=== PATIENT | female | born 1980 | race Caucasian/White ===

== ENCOUNTER 2024-08-24 08:28 | Outpatient (OUT) | payer BC, SELFPAY ==
--- NOTE | 2024-08-24 08:34 | CT_ITS ---
The [address] [address] Patient Name: ADALI JUARES MRN: [id number] date: 1980 Sex: F Assigned Patient Location: CT Current Patient Location: CT Accession/Order Number: [id number] Exam Date: 08/24/2024 09:38 Report Date: 08/24/2024 11:43 At the request of: KIARA MENDEZ Procedure: CT abdomen pelvis w con EXAM: CT abdomen pelvis w con HISTORY: Abdominal Pain, Diarrhea COMPARISON: None. TECHNIQUE: Following intravenous administration of 100 cc of Omnipaque 300, axial soft tissue windows of the abdomen and pelvis were performed with coronal and sagittal reformats. CT dose reduction technique was used including Automated Exposure Control. Findings: ABDOMEN: Small region of low attenuation within segment 4 of the liver adjacent to the falciform ligament likely relates to focal fatty infiltration. The gallbladder, spleen, pancreas, and adrenal glands are unremarkable. No renal stones or collecting system dilatation. Right renal low-attenuation lesion, too small to characterize. The bilateral ureters are nondilated. There are couple scattered colonic diverticula. Otherwise, the bowel is unremarkable without evidence of wall thickening or obstruction. The appendix is nondilated. The aorta is normal caliber. No enlarged abdominal lymph nodes or free abdominal fluid. Small fat-containing umbilicus hernia. Pelvis: Unremarkable bladder. The uterus is present and unremarkable within the limits of CT. Within the left adnexa there is a fluid density 2.2 cm lesion likely representing an ovarian cyst. No enlarged pelvic lymph nodes or free pelvic fluid. No aggressive sclerotic or lytic osseous lesions. CT/CT abdomen pelvis w con IMPRESSION: 1. No acute abdominal or pelvic abnormality. 2. Probable left ovarian cyst. 3. Other nonemergent findings, as described above. Electronically authenticated by: DARRIUS DE SANTIAGO Date: 08/24/2024 11:43
== END 2024-08-24 08:29 | disposition home or self-care (01) ==
LOC: CT 08:28
PROVIDERS: PCP Family Medicine; Visit Provider Family Medicine
DX: R10.9 Unspecified abdominal pain (principal); R19.7 Diarrhea, unspecified; N83.292 Other ovarian cyst, left side
CPT/HCPCS: 74177; Q9967

== ENCOUNTER 2024-09-12 16:08 | Outpatient (OUT) | payer BC, SELFPAY ==
--- NOTE | 2024-09-12 16:10 | US_ITS ---
The [address] [address] Patient Name: ADALI JUARES MRN: [id number] date: 1980 Sex: F Assigned Patient Location: US Current Patient Location: US Accession/Order Number: [id number] Exam Date: 09/12/2024 16:15 Report Date: 09/12/2024 19:48 At the request of: EBONY JAIN Procedure: US pelvis w/ transvaginal US pelvis w/ transvaginal HISTORY: LEFT OVARIAN CYST N83.202 COMPARISONS: 04/15/2025 TECHNIQUE: Transabdominal and transvaginal imaging the pelvis was performed. FINDINGS: UTERUS: Normal in size and echogenicity. The uterus measures 7.1 x 3.0 x 4.1 cm. MYOMETRIUM:Unremarkable. ENDOMETRIUM: The endometrium is within normal limits. The endometrium measures0.7 cm which is within normal limits. RIGHT OVARY: There is normal vascular flow to the right ovary. There are multiple follicles present in the right ovary. A dominant follicle measures 2.0 x 1.2 x 1.7 cm. No suspicious ovarian masses in the right ovary. The right ovary measures 4.9 x 2.2 x 3.5 cm and is mildly enlarged. LEFT OVARY: There is normal vascular flow to the left ovary. There is a dominant follicle in the left ovary measuring 1.4 x 0.9 x 1.47 m. The left ovary measures 3.6 x 1.4 x 2.3 cm and is normal in size. The cyst seen in the left ovary on the previous CT scan is no longer present and may have recently ruptured given the free fluid in the left adnexa adjacent to the left ovary. OTHER:There is a small amount of free fluid predominantly in the left adnexa. US/US pelvis w/ transvaginal IMPRESSION: Multiple follicles on both ovaries. There is a small amount of free fluid in the left adnexa adjacent to the left ovary. This may be secondary to Recently ruptured ovarian cyst from prior CT scan. No suspicious ovarian masses or evidence of ovarian torsion. Electronically authenticated by: KWESI REYES Date: 09/12/2024 19:48
--- OUTSIDE RECORDS SUMMARY | 2024-09-12 16:17 | XMS_ITS | CCD ---
Author Organization [facility] Care Team Providers Care Line Cook Name Role Phone DR HAYLIE MENDEZ Primary Care Unavailable ANDREA, DR HAYLIE Harris Admitting Unavailable ANDREA, DR HAYLIE Harris Attending Unavailable ANDREA, DR HAYLIE Harris Consulting Unavailable ANDREA, DR HAYLIE Harris Admitting Unavailable ANDREA, DR HAYLIE Harris Attending Unavailable ANDREA, DR HAYLIE Harris Consulting Unavailable ANDREA, DR HAYLIE Harris Primary Care Unavailable ANDREA, DR HAYLIE Harris Admitting Unavailable ANDREA, DR HAYLIE Harris Attending Unavailable Bridgett Clarke Unavailable Mabel Sapp Unavailable Haylie Mendez Unavailable Haylie Mendez MD Primary Care Provider [phone] Lisa Brooks MD Unavailable LISA BROOKS Attending Unavailable LISA BROOKS Attending Unavailable Allergies Allergy Classification Reported Allergen(s) Allergy Type Date of Onset Reaction(s) Facility (1 source) Penicillins Drug allergy (disorder) 4 [facility] (4 sources) Penicillin G Drug Allergy yeast infection [facility] Other (3 sources) Penicillins Drug Allergy 3 Rash [facility] (2 sources) Melatonin Drug Allergy 4 Other [facility] Medications Current Medications Medication Drug Class(es) Dates Sig (Normalized) Sig (Original) ADRENAPLEX (2 sources) Start: 05-30-2024 take 1 capsule by mouth once daily ADRENAPLEX Indications: Adrenal cortex hypofunction (CMS/HCC) Take 1 capsule by mouth Daily 05/30/2024 Active liothyronine sodium 0.005 mg oral tablet (13 sources) l-Triiodothyroni ne Start: 05-30-2024 liothyronine (Cytomel) 5 MCG tablet Indications: Euthyroid sick syndrome Take 1.5 tablet in AM and 1 tablet in PM on an empty stomach. SOLOMON; Sigma or Greenstone brands only 225 tablet 1 05/30/2024 Active Start: 05-30-2024 liothyronine ( Cytomel) 5 MCG tablet Indications: Euthyroid sick syndrome Take 1.5 tablet in AM and 1 tablet in PM on an empty stomach. SOLOMON; Sigma or Greenstone brands only 225 tablet 1 05/30/2024 Active Start: 12-01-2023 End: 05-30-2024 liothyronine (Cytomel) 5 MCG tablet Indications: ESS (euthyroid sick syndrome) Take 1 tablet (5 mcg) by mouth See administration instructions Take 1 tablet in AM and 1 tablet in PM on an empty stomach. SOLOMON; Sigma or Greenstone brands only 180 tablet 1 12/01/2023 05/30/2024 Discontinued (Dose adjustment) Start: 10-27-2023 take 1.5 tablets by mouth twice daily in the morning, then take 1 tablet by mouth twice daily in the evening Liothyronine 5 mcg tablet Active 0 PO Twice daily October 26, 2023 11:00pm 1.5 tablet in am and 1 tablet in pm orally twice daily; Liothyronine Sod ium Active methylPREDNISolone 4 mg oral tablet (6 sources) Corticosteroid Start: 10-23-2022 methylPREDNISo lone 4 MG as directed Orally for daily dose take half with breakfast, half with dinner for 6 days Jan, Active Start: 12-23-2021 methylPREDNISo lone 4 MG as directed Orally Once a day for 6 days November, Active SUMAtriptan 50 mg oral tablet (10 sources) Serotonin-1b and Serotonin-1d Receptor Agonist Start: 03-04-2024 Sumatriptan Succinat e 50 mg tablet Active 0 .ROUTE .COMPLEX March 04, 2024 8:11am TAKE 1 TABLET BY MOUTH NEEDED Start: 03-04-2024 Sumatriptan Domingo ccinate Active 0 .ROUTE .COMPLEX March 04, 2024 9:11am TAKE 1 TABLET BY MOUTH NEEDED Start: 10-27-2023 End: 03-04-2024 take 1 tablet by mouth once as needed Sumatriptan Succinate 50 mg tablet Discontinued 50 MG PO Once as needed October 26, 2023 11:00pm March 04, 2024 8:11am Start: 02-04-2023 SUMAtriptan (I mitrex) 50 MG tablet Take 50 mg by mouth if needed for migraine. 02/04/2023 Active Completed/Discontinued Medications Medication Drug Class(es) Dates Sig (Normalized) Sig (Original) Albuterol Sulfate 90 mcg/actuation HFA aerosol inhaler (1 source) Start: 04-27-2024 End: 08-11-2024 Albuterol Sulfate 90 mcg/actuation HFA aerosol inhaler Discontinued 2 INH INHALATION EVERY 4-6 HOURS as needed for shortness of breath or wheezing 6.7 14 April 26, 2024 11:00pm August 11, 2024 9:26am azithromycin 250 mg oral tablet (5 sources) Macrolide Antimicrobial Start: 04-27-2024 End: 08-11-2024 Azithromycin 250 mg tablet Discontinued 0 PO .COMPLEX April 26, 2024 11:00pm August 11, 2024 9:27am For 250 mg dose pack: take 500 mg today (day 1), then 250 mg for 4 days (days 2-5) PO Start: 11-18-2023 End: 04-27-2024 take 2 tablets by mouth once daily, then take 1 tablet by mouth once daily Azithromycin (Zithromax Z-Darek) 250 mg tablet Discontinued 250 MG PO Daily 6 November 17, 2023 11:00pm April 27, 2024 9:14am take 2 tabs today and 1 daily for the next 4 days Start: 02-04-2023 Azithromycin 2 50 MG as directed Orally 2 tabs po today, then 1 tab daily x 4 more days for 5 Jan, Active nystatin [id number] unt/ml oral suspension (1 source) Polyene Antifungal Start: 04-27-2024 End: 08-11-2024 take 1 mL by mouth four times daily Nystatin 100,000 unit/mL suspension Discontinued 5 ML PO Four times daily 140 April 26, 2024 11:00pm August 11, 2024 9:27am swish and swallow Problems Active Problems Problem Classification Problem Date Documented Da te Episodic/Chronic Acute and chronic tonsillitis (1 source) Acute bacterial tonsillitis; Translations: [Acute tonsillitis due to other specified organisms] 04-27-2024 Episodic Acute bronchitis (1 source) Acute bronchitis, unspecified; Translations: [ACUTE BRONCHITIS UNSPECIFIED] Onset: 02-08-2021 Episodic Allergic reactions (4 sources) Eczema; Translations: [Dermatitis, unspecified] 10-27-2023 Episodic Immunizations and screening for infectious disease (1 source) Contact with or exposure to other viral diseases; Translations: [Exposure to 2019 novel coronavirus] 04-27-2024 Episodic Malaise and fatigue (5 sources) Fatigue; Translations: [Chronic fatigue, unspecified] Onset: 04-17-2023 04-17-2023 Chronic Mycoses (1 source) Candidiasis of mouth; Translations: [Candidal stomatitis] 04-27-2024 Episodic Other endocrine disorders (5 sources) Adrenal cortical hypofunction; Translations: [Unspecified adrenocortical insufficiency] Onset: 04-17-2023 04-17-2023 Chronic Other gastrointestinal disorders (4 sources) Diarrhea; Translations: [Diarrhea, unspecified] 10-27-2023 Episodic Other gastrointestinal disorders (2 sources) Diarrhea, unspecified; Translations: [Diarrhea] 10-27-2023 Episodic Other lower respiratory disease (6 sources) Habitual snoring; Translations: [Snoring] 10-27-2023 Episodic Other lower respiratory disease (2 sources) Apnea; Translations: [Apnea, not elsewhere classified] Episodic Other nutritional; endocrine; and metabolic disorders (5 sources) Body mass index 25-29 - overweight; Translations: [Overweight] Onset: 04-17-2023 04-17-2023 Episodic Other screening for suspected conditions (not mental disorders or infectious disease) (4 sources) Encounter for screening for malignant neoplasm of cervix; Translations: [ENC SCREENING MALIG NEOPLASM CERV] Onset: 02-28-2021 Episodic Other upper respiratory infections (4 sources) Chronic sinusitis; Translations: [Chronic sinusitis, unspecified] 10-27-2023 Chronic Other upper respiratory infections (9 sources) Acute sinusitis, unspecified; Translations: [Acute pharyngitis, unspecified] Episodic Residual codes; unclassified (4 sources) Obstructive sleep apnea (adult) (pediatric); Translations: [OBSTRUCTIVE SLEEP APNEA] Onset: 03-11-2021 Chronic Residual codes; unclassified (4 sources) Sleep dysfunction with arousal disturbance; Translations: [Other sleep disorders] Onset: 05-30-2024 05-30-2024 Chronic Thyroid disorders (4 sources) Hypothyroidism; Translations: [Hypothyroidism, unspecified] 10-27-2023 Chronic Thyroid disorders (5 sources) Sick-euthyroid syndrome; Translations: [Sick-euthyroid syndrome] Onset: 04-17-2023 04-17-2023 Episodic Unclassified (3 sources) CONTACT W/AND (SUSP) EXPOS COVID-19; Translations: [CONTACT W/AND (SUSP) EXPOS COVID-19] Onset: 02-08-2021 Viral infection (2 sources) Other viral agents as the cause of diseases classified elsewhere Episodic Past or Other Problems Problem Classification Problem Date Documented Date Episodic/Chronic Otitis media and related conditions (1 source) Unspecified nonsuppurative otitis media, right ear Onset: 12-23-2021 Resolved: 12-23-2021 Episodic Spondylosis; intervertebral disc disorders; other back problems (8 sources) Cervico-occipital neuralgia; Translations: [Occipital neuralgia] Onset: 11-21-2015 10-27-2023 Episodic Unclassified (1 source) CONTACT W/AND (SUSP) EXPOS COVID-19; Translations: [CONTACT W/AND (SUSP) EXPOS COVID-19] Onset: 01-31-2021 Unclassified (1 source) Contact with and (suspected) exposure to covid-19 Z20.822 Results Test Name Value Interpretation Reference Range Facility No Panel InformationOrdered By: Kathy Gloria on 04-27-2024 Quick Strep (POC) [facility] No Panel InformationOrdered By: Radha Gatica on 11-18-2023 Quick Strep (POC) [facility] COVID + FLU Quick Testingon 02-02-2023 SARS-CoV-2 (COVID-19) RNA AURELIA+probe Ql (Unsp spec) Negative [facility] Other COVID + FLU Quick Testing Negative [facility] Other Quick Strepon 02-02-2023 S. pyogenes Org specific cx Ql (Throat) Negative [facility] Other Quick Strep [facility] Other Quick Strepon 10-23-2022 S. pyogenes Org specific cx Ql (Throat) Negative [facility] Other [facility] Other PAP ACOG PANEL 2: 30 to 65on 03-05-2021 . . Normal [place] Comment on above: Result Comment: Perf ormed at: WB Performed By: #### [id number] #### [facility] [address] [place] [address] Krishna Medrano Age Gdln ACOG Testing 30-65 Normal [place] Comment on above: Performed By: #### [id number] #### [facility] [address] [place] [address] Krishnakrunal Marquezen DIAGNOSIS: Comment Normal [place] Comment on above: Result Comment: NEGA TIVE FOR INTRAEPITHELIAL LESION OR MALIGNANCY. THIS SPECIMEN WAS RESCREENED PART OF OUR HIGH SPEED WARPER TENDER PROGRAM. Performed at: WB Performed By: #### [id number] #### [facility] [address] [place] [address] Krishna Medrano HPV Aptima Negative Normal Negative [place] Comment on above: Result Comment: This nucleic acid amplification test detects fourteen high-risk HPV types (16,18,31,33,35,39,45,51,52,56,58,59,66,68) without differentiation. Performed at: =G Performed By: #### [id number] #### [facility] [address] [place] [address] Krishna Marquezen Methodology: Comment Normal [place] Comment on above: Result Comment: This liquid based ThinPrep(R) pap test was screened with the use of an image guided system. Performed at: WB Performed By: #### [id number] #### [facility] [address] [place] [address] Krishna Marquezen Note: Comment Normal [place] Comment on above: Result Comment: The Pap smear is a screening test designed to aid in the detection of premalignant and malignant conditions of the uterine cervix. It is not a diagnostic procedure and should not be used as the sole means of detecting cervical cancer. Both false-positive and false-negative reports do occur. . Performed at: WB Performed By: #### [id number] #### [facility] [address] [address] Krishna Medrano Performed by: Comment Normal [facility] Comment on above: Result Comment: Juan Luis Leiva, Classification Control Clerk (ASCP) Performed at: WB Performed By: #### [id number] #### [facility] [address] [id number] Krishna Medrano QC reviewed by: Comment Normal [facility] Comment on above: Result Comment: Veronique Eddy, Classification Control Clerk (ASCP) Performed at: WB Performed By: #### [id number] #### [facility] [address] Specimen adequacy: Comment Normal [facility] Comment on above: Result Comment: Sati sfactory for evaluation. Endocervical and/or squamous metaplastic cells (endocervical component) are present. Performed at: WB Performed By: #### [id number] #### [facility] [address] [place] [address] Covid-19 PCR (CVDTB)on SARS-CoV-2 (COVID-19) RNA AURELIA+probe Ql (Unsp spec) Not detected Normal NOT DETECTED [place] Comment on above: Result Comment: This test is not yet approved or cleared by the [place] FDA. When there are no FDA-approved or cleared tests available, and other criteria are met, FDA can make tests available under an emergency access mechanism called an Emergency Use Authorization (EUA). The EUA for this test is supported by the Instructional Resource Teacher of Health and Human Service's (HHS's) declaration that circumstances exist to justify the emergency use of in vitro diagnostics for the detection and/or diagnosis of the virus that causes COVID-19. This EUA will remain in effect (meaning this test can be used) for the duration of the COVID-19 declaration justifying emergency of IVDs, unless it is terminated or revoked by FDA (after which the test may no longer be used). When diagnostic testing is negative, the possibility of a false negative should be considered in the context of a patient's recent exposures and the presence of clinical signs and symptoms consistent with SARS-CoV-2. Performed By: #### C CANDIDAAGS, CVDTB #### [facility] [address] [place], [place] [address] Krishna Medrano SYMPTOMATIC COVID-19 ANTIGEN on 01-31-2021 EUA Statement SEE BELOW Normal [facility] Comment on above: Result Comment: This test has not been FDA cleared or approved, but has been authorized by the FDA under an Emergency Use Authorization (EUA) for use by authorized laboratories certified under CLIA that meet the requirements to perform moderate or high complexity testing. This test has been authorized only for the detection of proteins from SARS-CoV-2, not for any other viruses or pathogens. The emergency use of this test is authorized for the duration of the declaration that circumstances exist justifying the authorization of emergency use of in vitro diagnostic tests for detection and/or diagnosis of Covid-19 under section 564(b)(1) of the Act, 21 U.S.C. 360bbb-3(b)(1), unless the declaration is terminated or authorization is revoked sooner. Performed By: #### C BRIELLES, CVDTB #### [facility] [address] [place], [place] [address] Krishna Medrano SARS-CoV-2 (COVID-19) RNA AURELIA+probe Ql (Unsp spec) Negative Normal NEGATIVE [facility] Comment on above: Performed By: #### C BRIELLES, CVDTBH #### [facility] [address] [place], [place] [address] Krishna Medrano Vital Signs Date Time Vital Sign Value Performing Clinician Facility 08-11-2024 09:0500 Body height 160.02 cm [facility] 08-11-2024 09:210500 Body mass index (BMI) [Ratio] 27.8 kg/m2 [facility] 08-11-2024 09:0500 Body weight 71.38 kg [facility] 08-11-2024 09:210500 Diastolic blood pressure 97 mm[Hg] [facility] 08-11-2024 09:210500 Heart rate 79 /min [facility] 08-11-2024 09:21-0500 Systolic blood pressure 147 mm[Hg] [facility] 05-30-2024 07:59-0500 Body height 160 cm Lisa Brooks MD Work Phone: [facility] 05-30-2024 07:59-0500 Body mass index (BMI) [Ratio] 27.63 kg/m2 Lisa Brooks MD Work Phone: [facility] 05-30-2024 07:59-0500 Body weight 70.76 kg Lisa Brooks MD Work Phone: [facility] 04-27-2024 10:17-0400 Body height 160.02 cm [facility] 04-27-2024 10:17-0400 Body mass index (BMI) [Ratio] 23.7 kg/m2 [facility] 04-27-2024 10:17-0400 Body temperature 98.4 [degF] [facility] 04-27-2024 10:17-0400 Body weight 60.78 kg [facility] 04-27-2024 10:17-0400 Diastolic blood pressure 88 mm[Hg] [facility] 04-27-2024 10:17-0400 Heart rate 110 /min [facility] 04-27-2024 10:17-0400 Respiratory rate 18 /min [facility] 04-27-2024 10:17-0400 SaO2% (BldA) [Mass fraction] 95 % [facility] 04-27-2024 10:17-0400 Systolic blood pressure 133 mm[Hg] [facility] 11-18-2023 10:05-0400 Body height 160.02 cm [facility] 11-18-2023 10:05-0400 Body mass index (BMI) [Ratio] 27.6 kg/m2 [facility] 11-18-2023 10:05-0400 Body temperature 97.4 [degF] [facility] 11-18-2023 10:05-0400 Body weight 70.81 kg [facility] 11-18-2023 10:05-0400 Diastolic blood pressure 70 mm[Hg] [facility] 11-18-2023 10:05-0400 Heart rate 88 /min [facility] 11-18-2023 10:05-0400 Respiratory rate 16 /min [facility] 11-18-2023 10:05-0400 SaO2% (BldA) [Mass fraction] 98 % [facility] 11-18-2023 10:05-0400 Systolic blood pressure 120 mm[Hg] [facility] 10-27-2023 09:00-0400 Body height 157.48 cm [facility] 10-27-2023 09:00-0400 Body mass index (BMI) [Ratio] 28.7 kg/m2 [facility] 10-27-2023 09:00-0400 Body weight 71.21 kg [facility] 10-27-2023 09:00-0400 Diastolic blood pressure 78 mm[Hg] [facility] 10-27-2023 09:00-0400 Heart rate 111 /min [facility] 10-27-2023 09:00-0400 SaO2% (BldA) [Mass fraction] 98 % [facility] 10-27-2023 09:00-0400 Systolic blood pressure 124 mm[Hg] [facility] 02-04-2023 10:30-0400 Body height 157.48 cm Haylie Mendez Other [employer] [facility] Other 02-04-2023 10:30-0400 Body mass index (BMI) [Ratio] 27.72 kg/m2 Haylie Mendez Other [employer] [facility] Other 02-04-2023 10:30-0400 Body weight 68.77 kg Haylie Mendez Other [employer] [facility] Other 02-04-2023 10:30-0400 Diastolic blood pressure 102 mm[Hg] Haylie Mendez Other [employer] [facility] Other 02-04-2023 10:30-0400 Systolic blood pressure 136 mm[Hg] Haylie Mendez Other [facility] Other 02-02-2023 09:40-0400 Body height 157.48 cm Mabel Sapp Other [facility] Other 02-02-2023 09:40-0400 Body mass index (BMI) [Ratio] 28.27 kg/m2 Mabel Sapp Other [facility] Other 02-02-2023 09:40-0400 Body temperature 98.6 [degF] Mabel Sapp Other [facility] Other 02-02-2023 09:40-0400 Body weight 70.13 kg Mabel Sapp Other [facility] Other 02-02-2023 09:40-0400 Respiratory rate 18 /min Mabel Sapp Other [facility] Other 02-02-2023 09:40-0400 SaO2% (BldA) [Mass fraction] 98 % Mabel Sapp Other [facility] Other 10-23-2022 19:05-0400 Body height 157.48 cm Mabel Sapp Other [facility] Other 10-23-2022 19:05-0400 Body mass index (BMI) [Ratio] 27.43 kg/m2 Mabel Sapp Other [facility] Other 10-23-2022 19:05-0400 Body temperature 98.3 [degF] Mabel Sapp Other [facility] Other 10-23-2022 19:05-0400 Body weight 68.04 kg Mabel Sapp Other [facility] Other 10-23-2022 19:05-0400 Respiratory rate 18 /min Mabel Sapp Other [facility] Other 10-23-2022 19:05-0400 SaO2% (BldA) [Mass fraction] 99 % Mabel Sapp Other [facility] Other 12-23-2021 12:10-0400 Body height 157.48 cm Bridgett Clarke Other [facility] Other 12-23-2021 12:10-0400 Body mass index (BMI) [Ratio] 27.07 kg/m2 Bridgett Herreraault Other [facility] Other 12-23-2021 12:10-0400 Body temperature 98.1 [degF] Bridgett Clarke Other [facility] Other 12-23-2021 12:10-0400 Body weight 67.13 kg Bridgett Clarke Other [facility] Other 12-23-2021 12:10-0400 Respiratory rate 16 /min Bridgett Herreraault Other [facility] Other 12-23-2021 12:10-0400 SaO2% (BldA) [Mass fraction] 98 % Bridgett Herreraault Other [facility] Other Encounters Encounter Date Encounter Type Care Provider Facility Start: 08-11-2024 End: 08-11-2024 ambulatory [facility] Work Phone: Start: 08-11-2024 End: 08-11-2024 Patient encounter procedure [facility] Work Phone: Start: 05-30-2024 End: 05-30-2024 Yakov Brooks MD Work Phone: [facility] Start: 05-30-2024 End: 05-30-2024 Yakov Brooks MD Work Phone: [facility] Start: 05-30-2024 End: 05-30-2024 Office outpatient visit 25 minutes Lisa Brooks MD Work Phone: [facility] Comment on above: Chronic fatigue (Zainab janes Dx); Euthyroid sick syndrome; Adrenal cortex hypofunction (CMS/HCC); Sleep dysfunction with arousal disturbance; Overweight (BMI 25.0-29.9) Start: 05-30-2024 End: 05-30-2024 ambulatory LISA BROOKS Not Available Start: 04-27-2024 End: 04-27-2024 ambulatory [facility] Work Phone: Start: 04-27-2024 End: 04-27-2024 Patient encounter procedure [facility] Work Phone: Start: 12-01-2023 End: 12-01-2023 ambulatory LISA BROOKS Not Available Start: 11-18-2023 End: 11-18-2023 ambulatory [facility] Work Phone: Start: 11-18-2023 End: 11-18-2023 Patient encounter procedure [facility] Work Phone: Start: 10-27-2023 End: 10-27-2023 ambulatory [facility] Work Phone: Start: 10-27-2023 End: 10-27-2023 Patient encounter procedure [facility] Work Phone: Start: 02-04-2023 End: 02-04-2023 ambulatory Haylie Mendez Other [facility] Other Start: 02-04-2023 Office outpatient vi sit 15 minutes Haylie Mendez [facility] Start: 02-02-2023 End: 02-02-2023 ambulatory Mabel Sapp Other [facility] Other Start: 02-02-2023 Office outpatient vi sit 25 minutes Mabel Sapp [facility] Start: 10-23-2022 End: 10-23-2022 ambulatory Mabel Sapp Other [facility] Other Start: 10-23-2022 Office outpatient vi sit 15 minutes Mabel Sapp [facility] Start: 12-23-2021 End: 12-23-2021 ambulatory Bridgett Clarke Other [facility] Other Start: 12-23-2021 Office outpatient vi sit 15 minutes Bridgettnestor Clarke [facility] Start: 03-11-2021 End: 03-12-[address] HAYLIE MENDEZ Facility:[facility] Start: 02-28-2021 End: 02-28-[address] HAYLIE MENDEZ Facility:[facility] Start: 01-31-2021 End: 02-01-[address] HAYLIE MENDEZ Facility:[facility] Procedures Date Procedure Procedure Detail Performing Clinician Start: 04-27-2024 Quick Strep (POC) Start: 11-18-2023 Quick Strep (POC) Plan of Treatment Date Care Activity Detail Author Start: 11-27-2024 End: 05-30-2025 T3, reverse T3, reverse Lab Routine Chronic fatigue Euthyroid sick syndrome Expected: 11/27/2024 (Approximate), Expires: 05/30/2025 [facility] Healthcare Comment on above: Expected: 11/27/2024 (Approximate), Expires: 05/30/2025 Start: 11-27-2024 End: 05-30-2025 Thyrotropin [Units/volume] in Serum or Plasma TSH Lab Routine Chronic fatigue Euthyroid sick syndrome Expected: 11/27/2024 (Approximate), Expires: 05/30/2025 [facility] Comment on above: Expected: 11/27/2024 (Approximate), Expires: 05/30/2025 Start: 11-27-2024 End: 05-30-2025 Thyroxine (T4) free [Mass/volume] in Serum or Plasma T4, free Lab Routine Chronic fatigue Euthyroid sick syndrome Expected: 11/27/2024 (Approximate), Expires: 05/30/2025 [facility] Healthcare Comment on above: Expected: 11/27/2024 (Approximate), Expires: 05/30/2025 Start: 11-27-2024 End: 05-30-2025 Triiodothyronine (T3) [Mass/volume] in Serum or Plasma T3 Lab Routine Chronic fatigue Euthyroid sick syndrome Expected: 11/27/2024 (Approximate), Expires: 05/30/2025 [facility] Work Phone: Comment on above: Expected: 11/27/2024 (Approximate), Expires: 05/30/2025 Start: 11-27-2024 End: 05-30-2025 Triiodothyronine (T3) Free [Mass/volume] in Serum or Plasma T3, free Lab Routine Chronic fatigue Euthyroid sick syndrome Expected: 11/27/2024 (Approximate), Expires: 05/30/2025 [facility] Healthcare Comment on above: Expected: 11/27/2024 (Approximate), Expires: 05/30/2025 Start: 11-24-2024 End: 11-24-2024 Patient encounter procedure 11/24/2024 8:00 AM EDT Office Visit [facility] [address] [place] [address] [place] [id number] Lisa Brooks MD [address] [place] [address] [facility] Start: 05-30-2024 End: 05-30-2024 Patient encounter procedure 05/30/2024 8:00 AM EST Office Visit [facility] [address] [place] [address] Lisa Brooks MD [address] [place] [address] (Fax) ESS (euthyroid sick syndrome); Chronic fatigue; Overweight (BMI 25.0-29.9) [facility] CI FM 100 Comment on above: ESS (euthyroid sick syndrome); Chronic fatigue; Overweight (BMI 25.0-29.9) Start: 03-27-2024 Influenza vaccination Influenza Vacc ine (#1) [facility] Start: 2020 Screening for malign ant neoplasm of breast Mammogram [facility] Start: 2010 Screening for malign ant neoplasm of cervix [facility] Start: 2001 Screening for malign ant neoplasm of cervix Pap Smear [facility] Immunizations Immunization Date Immunization Notes Care Provider Fa edna 02-08-2012 diphtheria, tetanus toxoids and acellular pertussis vaccine Bridgett Clarke Other [facility] Other 02-08-2012 diphtheria, tetanus toxoids and acellular pertussis vaccine, unspecified formulation [facility] Payers Date Payer Category Payer [facility] [id number] 2021 Unknown [id number] 1980 Unknown [id number] 1980 Unknown [id number] 1980 Unknown [id number] 1980 Unknown [id number] 1980 Unknown [id number] 1959 Unknown [id number] Social History Date Type Detail Facility Unknown if ever smoked [facility] Other Start: 05-27-2024 End: 05-30-2024 Sex Assigned At [facility] Start: 10-27-2023 End: 10-27-2023 Tobacco smoking status [facility] Never smoked tobacco (finding) [facility] Start: 1980 Sex Assigned At Female [facility] Start: 12-01-2023 Tobacco smoking status [facility] Ex-smoker [facility] History of tobacco use Current smoker [facility] History of tobacco use Cigarette Smoker [facility] Start: 12-01-2023 Tobacco use and exposure Smokeless tobacco non-user [facility] Start: 12-01-2023 End: 05-30-2024 Alcoholic beverage intake Current drinker of alcohol (finding) [facility] Start: 12-01-2023 End: 05-27-2024 Alcoholic beverage intake [facility] How often do you nee d to have someone help you when you read instructions, pamphlets, or other written material from your doctor or pharmacy [SILS] Never [facility] Do you belong to any clubs or organizations such as samaritan groups, unions, fraternal or athletic groups, or school groups? Yes [facility] Are you now , , , , never or living with a partner? [facility] How often to you hav e a drink containing alcohol? Monthly or less [facility] How many standard dr inks containing alcohol do you have on a typical day? 1 or 2 [facility] How often do you hav e 6 or more drinks on 1 occasion? Never [facility] How hard is it for y ou to pay for the very basics like food, housing, medical care, and heating Somewhat hard [facility] Do you feel stress - tense, restless, nervous, or anxious, or unable to sleep at night because your mind is troubled all the time - these days [OSQ] To some extent [facility] (I/We) worried wheth er (my/our) food would run out before (I/we) got money to buy more. Never true [facility] The food that (I/we) bought just didn't last, and (I/we) didn't have money to get more. Sometimes true [facility] In the past 12 month s, was there a time when you were not able to pay the mortgage or rent on time? No [facility] Start: 05-19-2023 Alcohol Comment Caffeine intake: 2-3 cups per day [facility] Start: 04-09-2023 Gender identity Identifies as female gender (finding) [facility] Start: 08-11-2024 Sex Female (finding) [facility] Clinical Notes 11-24-2013 to 05-30-2024 Lisa Brooks MD - 05/30/2024 8:00 AM EST Note Date & Type Note Facility 05-30-2024 History of Presen t illness Narrative Images from the original note were not included. Patient ID: Keira Yu is a 43 y.o. female who presents for: Pt here today to review his/hers thyroid labs and any medication changes needed. Fatigue: Present, worse in afternoon Weight Gain: Absent Inability to lose weight: Present, Unchanged Hair Changes: Better He/She is following the thyroid diet: Fair He/She are taking medications as directed: Good He/She are exercising at least 3 days out of the week for 30 minutes or more: Poor Review of Systems Constitutional: Positive for fatigue. Negative for appetite change. HENT: Negative for trouble swallowing and voice change. Cardiovascular: Negative for palpitations. Musculoskeletal: Positive for arthralgias. Negative for myalgias. Psychiatric/Behavioral: Positive for sleep disturbance. The patient is nervous/anxious. Endocrine: Negative for cold intolerance and heat intolerance. Labs 05/19/2024 Calculated THY Ratio: 8.7 Objective The patient is pleasant and in no acute distress The patient does not appear to have a gross neurologic deficit. The patient has good eye contact and clear speech Visit Vitals Ht 5' 3 Wt 156 lb BMI 27.63 kg/m OB Status Having periods Smoking Status Former BSA 1.77 m Allergies Allergen Reactions Penicillins Rash Other Reaction(s): Unknown Current Outpatient Medications on File Prior to Visit Medication Sig Dispense Refill liothyronine (Cytomel) 5 MCG tablet Take 1 tablet (5 mcg) by mouth See administration instructions Take 1 tablet in AM and 1 tablet in PM on an empty stomach. SOLOMON; Sigma or [employer] brands only 180 tablet 1 SUMAtriptan (Imitrex) 50 MG tablet Take 50 mg by mouth if needed for migraine. No current facility-administered medications on file prior to visit. 1. Chronic fatigue (Primary) Chronic problem, unstable, complex in nature with moderate decision making. 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 We discussed how this is either not improved or not inadequately addressed. We discussed how this is almost always a multifactorial problem. We discussed that the patient will almost certainly need to continue to make lifestyle changes including diet, sleep, exercise, and stress management as appropriate. We further discussed how we will continue to search for refinements in their current treatments or evaluation for further disease processes and then support or treat them as appropriate. We discussed how we can frequently improve the symptoms, but may not be able to completely cure or resolve the issue. The patient was given a chance to ask questions and all questions were answered. - T3; Future - T3, reverse; Future - T3, free; Future - T4, free; Future - TSH; Future - T3 - T3, reverse - T3, free - T4, free - TSH 2. Euthyroid sick syndrome Has a little bit of room when we look at her test and she is not quite optimal on a couple tests values. With her having her afternoon slump we have mutually agreed to a small increase in her a.m. thyroid. This is a complex chronic problem, unstable, not to goal; managment requires moderate decision making I reviewed diet and exercise with the patient. I discussed the patient's current psychosocial and physical condition and the stress impact upon them. I reviewed the multiple unique laboratories and explained the results to the patient. The patient has been re-educated concerning the above diagnoses and that the treatment for some of these may not be considered the standard of care, including TSH suppression when utilized. The patient has been re-educated and instructed concerning medication timing, diet, exercise, and stress reduction as appropriate. I reviewed the patient's current prescriptions and discussed the possibilities of medication renewals, adjustments, new medication start, or stop medication as appropriate The patient has been instructed to follow up and bring a diet and exercise log, and the importance of follow up and compliance. The patient was given a chance to ask questions today and all questions were answered. The patient is to contact us if any other questions arise or if any problems occur. In prescribing an adjustment to their current medication, consideration of the following encompasses moderate decision making; the current prescriptions and supplements, the current allergies and medication intolerances, the current medical conditions, and potential drug interactions. Risks, benefits, and reason for adjusting their current medication were discussed. The patient was given a chance to ask questions today and all questions were answered. The patient is to contact us if any other questions arise or if any problems occur with the adjustment in their medication. - liothyronine (Cytomel) 5 MCG tablet; Take 1.5 tablet in AM and 1 tablet in PM on an empty stomach. SOLOMON; [employer]opify or [employer] brands only Dispense: 225 tablet; Refill: 1 - T3; Future - T3, reverse; Future - T3, free; Future - T4, free; Future - TSH; Future - T3 - T3, reverse - T3, free - T4, free - TSH 3. Adrenal cortex hypofunction (CMS/HCC) She takes this after her lunch and does get some benefit. It does not last the entire work. Discussed the importance of good sleep and mindfulness and regular exercise in this role. - ADRENAPLEX; Take 1 capsule by mouth Daily 4. Sleep dysfunction with arousal disturbance This is a chronic problem that she brought up today. Melatonin gives her nightmares. Chronic problem, unstable I reviewed the patient's sleep disorder with them. I educated them concerning their specific sleep disorder. I advised the patient to review sleep hygiene recommendations online and implement these. I also recommend blue light blocking (the salmon/mabel colored ones) glasses in the evening for 1 1/2 - 2 hours prior to bedtime to filter out the blue light from the environment and create twilight . Natural supplements that can be used in any combination together include; 5 HTP (five hydroxy-tryptophan) 100-200mg, magnesium glycinate 100-200mg, Sometimes using adaptogens (such as ashwaganda 500 to 1000mg) in the early evening may also be helpful. These can be sometimes taken upon awaking in the middle of the night if you have sleep arousal disorder. Degi-xuh-zxisfkb medication includes doxylamine 1-2 tablets, and not most of the other medications which contain Benadryl and can be impairing. We have discussed that any supplements recommended have not undergone review or approval by the FDA and, therefore, have not been documented to be safe or effective to diagnose, treat, prevent, mitigate, or cure any condition or disease. I discussed with her she continues to have problem she is never going to feel rested. Also the adrenal gland makes most of it is hormone during the sleep cycle. Interrupted sleep cycles have demonstrated the inability of the adrenal to make the hormone. I discussed with the very specifically if she tries the above options and she still can not sleep through the night then she should follow-up with her PCP to try some prescription intervention. 5. Overweight (BMI 25.0-29.9) Lifestyle changes as above documented in this encounter [facility] 02-04-2023 Evaluation note Encounter Date Diagnosis Assessment Notes Jan, Acute non-recurren t maxillary sinusitis (ICD-10 - J01.00) Presentation consistent with acute sinusitis after viral illness. Educated patient on appropriateness of antibiotic at this time. Instructed to take full course of antibiotic despite feeling better after a few days. Encouraged to use saline nasal spray or nasal irrigation to help decrease viscosity and allow drainage. Encouraged humidifier or to breathe in steam from shower. Patient to continue Tylenol or Motrin as needed for discomfort. Patient to follow-up with PCP as needed if symptoms do not improve within a few days. Patient verbalizes understanding and agrees with plan of care. [facility] Other 07-10-2023 Evaluation note* Encounter Date Diagnosis Assessment Notes Treatment Notes Treatment Clinical Notes Jan, Contact with and (suspected) exposure to covid-19 (ICD-10 - Z20.822) Jan, Acute sinusitis, unspecified (ICD-10 - J01.90) Advised patient that rapid COVID/influenza A/B and rapid strep test was negative today in office. Discussed diagnosis with patient today. Will treat as viral at this time based on physical exam and duration of symptoms. Advised patient viral syndromes last 7-10 days. If symptoms do not improve in the next 3-4 days patient may call UC and I will send antibiotic of doxycycline. Encouraged supportive care as directed today. Push fluids/rest, nasal saline washes as directed, may use Tylenol or Motrin as needed for discomfort, OTC plain Mucinex. Patient to follow up with PCP or UC for any new or worsening symptoms. Work note provided today in office, no extension allowed. Immediate eval if SOB, wheezing, difficulty breathing, or other concerning symptoms. Patient verbalizes understanding and is agreeable to treatment plan. Jan, Other viral agents as the cause of diseases classified elsewhere (ICD-10 - B97.89) Jan, Sore throat (ICD-10 - J02.9) [facility] Other 03-30-2023 Evaluation note* Encounter Date Diagnosis Assessment Notes Treatment Notes Treatment Clinical Notes Sep, Acute sinusitis, unspecified (ICD-10 - J01.90) Advised patient that rapid Strep test was negative today in office. Patient declines/refuses COVID testing at this time. I am suspicous of COVID based on physical exam. Will send in Medrol dose pack to use as directed. Will treat as viral at this time based on physical exam and duration of symptoms. Advised patient viral syndromes last 7-10 days. If symptoms do not improve in the next 3-4 days patient may call UC and I will send antibiotic. Take steroid as prescribed. Use Mucinex OTC as directed. Encouraged supportive care. Push fluids/rest, nasal saline irrigation and spray as directed, may use Tylenol or Motrin as needed for discomfort. Patient to follow up with PCP or UC for any new or worsening symptoms. Warning signs and symptoms as discussed requiring immediate eval. Patient verbalizes understanding and is agreeable to treatment plan Sep, Other viral agents as the cause of diseases classified elsewhere (ICD-10 - B97.89) Sep, Sore throat (ICD-10 - J02.9) [facility] Other 05-30-2022 Evaluation note* Encounter Date Diagnosis Assessment Notes Treatment Notes Treatment Clinical Notes November, Right otitis media with effusion (ICD-10 - H65.91) Recommend OTC Zyrtec for symptoms. Follow up with PCP if symptoms persists. [facility] Other 08-16-2021 NoteHOME SLEEP STUDY Ordering Physician: Dr. Haylie Mendez Procedure Date: 03-11-21 CLINICAL HISTORY: This is a 40 year-old female who is 63 inches tall, weighs 153 pounds with a body mass index of 27.1, who was referred for loud snoring and witnessed episodes of apnea. RECORDING TIME: The total recording time was 6 hours and 53 minutes, total monitoring time was 6 hours and 25 minutes. COMPREHENSIVE VENTILATORY MONITORING: The patient had an apnea/hypopnea index o f9 per hour. The average oxygenation while awake was 95% with a minimum oxygen saturation down to 89%. PULSE DATA: The average pulse rate was 79 bpm, minimum pulse rate was 64 bpm and maximum pulse rate was 100 bpm. SNORING DATA: The patient had 587 snoring occurrences. IMPRESSION: 1. This patient does meet criteria for a mild obstructive sleep apnea and may benefit from CPAP titration. 2. This patient would benefit from treatment of any other coexisting medical condition including obesity, insomnia, anxiety or depression. 3. Please correlate clinically.[id number] History general Narrative - Reported* Type Description Date Medical History eczema Surgical History [facility] Surgical History Cyst on Face/Thigh 11/2013 [facility] Other 05-01-2014 History general Narrative - Reported* Type Description Date Medical History eczema Medical History Hypothyroidism Surgical History [facility] Surgical History Cyst on Face/Thigh 11/2013 Hospitalization History see above [facility] Other 05-01-2014 History general Narrative - Reported* Type Description Date Medical History eczema Medical History Hypothyroidism Medical History Habitual snoring Medical History Apnea Surgical History [facility] Surgical History Cyst on Face/Thigh 11/2013 Hospitalization History see above [facility] Other Chipb complaint+Reason for visit Narrative* Chief Complaint Sore throat Reason for Visit Contact with and (domingo spected) exposure to covid-19 Sore throat [facility] Work Phone: Evaluation note* Diagnosis Onset Date Resolution Status Diarrhea acute [facility] Work Phone: Evaluation note* Diagnosis Onset Date Resolution Status Diarrhea acute Bacterial pharyngitis noneac tive Sore throat noneactive [facility] Work Phone: Evaluation note* Diagnosis Onset Date Resolution Status Contact with and (suspected) exposure to covid-19 noneactive Sore throat noneactive [facility] Work Phone: Evaluation note* Diagnosis Chronic fatigue- Primary Other malaise and fatigue 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) Glucocorticoid deficiency Sleep dysfunction with arousal disturbance Overweight (BMI 25.0-29.9) [facility] Summary Purpose Family History No Family History Records FoundNo Family History Records Found Advance Directives Advance Directive Response Recorded Date/ Time Advance Directives No October 26 8:38am Advance Directive Response Recorded Date/ Time Advance Directives No October 26 7:38am Chief Complaint and Reason for Visit Chief Complaint Abdominal Pain Reason for Visit Diarrhea Chief Complaint Abdominal Pain Sore throat Reason for Visit Diarrhea Bacterial pharyngitis Sore throat Chief Complaint Admit Date Pain around belly button August 11 025 9:18am Additional Source Comments INFORMATION SOURCE (unrecogn ized section and content) DATE CREATED AUTHOR 04/09/2021 [facility] DATE CREATED AUTHOR AUTHOR'S ORGANIZ ATION 05/30/2024 [facility] EPIC REASON FOR VISIT (unrecogniz ed section and content) Reason Comments Hypothyroidism Care Teams (unrecognized sec tion and content) Team Status: Active Member Role Status Dates Haylie Mendez MD Primary Care Provider Active Team Status: Inactive Member Role Status Dates Haylie Mendez MD Primary Care Provider Active Start: October 27, 2023 End: October 27, 2023 Flora Arnold APRN LOAD CHECKER-C Attending Provider Act milo Start: October 27, 2023 End: October 27, 2023 Team Status: Inactive Member Role Status Dates Haylie Mendez MD Primary Care Provider Active Start: November 18, 2023 End: November 18, 2023 JAIDA Forbes Attending Provider Active S tart: November 18, 2023 End: November 18, 2023 Team Status: Inactive Member Role Status Dates Haylie Mendez MD Primary Care Provider Active Start: April 27, 2024 End: April 27, 2024 Kathy Gloria APRN Attending Provider Active S tart: April 27, 2024 End: April 27, 2024 Line Cook Relationship Specialty Start Date End Date Haylie Mendez MD [address] [place] [address] PCP - General 05/13/23 Lisa Brooks MD [address] [place] [address] PCP [facility] 09/25/23 Line Cook Relationship Specialty Start Date End Date Haylie Mendez MD [address] [place] [address] PCP - General 05/13/23 Lisa Brooks MD [address] [place] [address] PCP [facility] 09/25/23 Team Status: Inactive Member Role Status Dates Haylie Mendez MD Primary Care Provide r, Attending Provider Active Start: August 11, 2024 End: August 11, 2024 Goals (unrecognized section and content) Goals may be documented in a n alternate section FOR RECORDS PERTAINING TO PATIENTS WHO ARE OR HAVE BEEN ENROLLED IN A CHEMICAL DEPENDENCY/SUBSTANCEABUSE PROGRAM, SOME INFORMATION MAY BE OMITTED. This clinical summary was aggregated from multiple sources. Caution should be exercised in using it in the provision of clinical care. This summary normalizes information from multiple sources, and as a consequence, information in this document may materially change the coding, format and clinical context of patient data. In addition, data may be omitted in some cases. CLINICAL DECISIONS SHOULD BE BASED ON THE PRIMARY CLINICAL RECORDS. [facility]. provides no warranty or guarantee of the accuracy or completeness of information in this document.
== END 2024-09-12 16:09 | disposition home or self-care (01) ==
LOC: US 16:08
PROVIDERS: PCP Family Medicine; Visit Provider Obstetrics & Gynecology
DX: N83.202 Unspecified ovarian cyst, left side (principal)
CPT/HCPCS: 76830; 76856

== ENCOUNTER 2024-12-29 20:01 | Outpatient (REF) | payer BC, SELFPAY ==
--- OUTSIDE RECORDS SUMMARY | 2024-12-29 09:00 | XMS_ITS | Encounter Summary ---
Author Organization [facility] Address [address] [place] [address] Care Team Providers Care Author'S Agent Name Role Phone Haylie Mcnamara MD Primary Care Provider [phone] Yao Bowden MD Unavailable [phone] Reason for Visit * Reason Comments Well Women Visit Encounter Details Date Type Department Care Team (Late st Contact Info) Description 12/29/2024 9:00 AM EDT Office Visit [facility] [address] [facility] [place] [phone] Pooja Pena PA [address] [facility] [address] [place], [facility]11 Well woman exam with routine gynecological exam; Encounter for screening mammogram for malignant neoplasm of breast Social History Tobacco Use Types Packs/Day Years Used Date Smoking Tobacco: Former Cigarettes Smokeless Tobacco: Never Alcohol Use Standard Drinks/Week Comments Yes 4 (1 standard drink = 0.6 oz pure alcohol) Caffeine intake: 2-3 cups per day B1300 Health Literacy Answer Date Recor ded How often do you need to hav e someone help you when you read instructions, pamphlets, or other written material from your doctor or pharmacy? Never 05/27/2024 Social Connection and Isolation Panel [NHANES] A nswer Date Recorded In a typical week, how many times do you talk on the phone with family, friends, or neighbors? Three times a week 05/27/2024 How often do you get togethe r with friends or relatives? Once a week 05/27/2024 How often do you attend chur ch or jainism services? Never 05/27/2024 Do you belong to any clubs o r organizations such as baptist groups, unions, fraternal or athletic groups, or school groups? Yes 05/27/2024 How often do you attend meet ings of the clubs or organizations you belong to? Never 05/27/2024 Are you , , di vorced, , never , or living with a partner? 05/27/2024 AUDIT-C Answer Date Recorded Q1: How often do you have a drink containing alc ohol? Monthly or less 05/27/2024 Q2: How many drinks containi ng alcohol do you have on a typical day when you are drinking? 1 or 2 05/27/2024 Q3: How often do you have si x or more drinks on one occasion? Never 05/27/2024 Overall Financial Resource Strain (CARDIA) Answe r Date Recorded How hard is it for you to pa y for the very basics like food, housing, medical care, and heating? Somewhat hard 05/27/2024 [facility] - Occupational Stress Questionnaire Answer Date Recorded Do you feel stress - tense, restless, nervous, or anxious, or unable to sleep at night because your mind is troubled all the time - these days? To some extent 05/27/2024 Exercise Vital Sign Answer Date Recorde d On average, how many days pe r week do you engage in moderate to strenuous exercise (like a brisk walk)? 2 days 05/27/2024 On average, how many minutes do you engage in exercise at this level? 20 min 05/27/2024 Hunger Vital Sign Answer Date Recorded Within the past 12 months, y ou worried that your food would run out before you got the money to buy more. Never true Within the past 12 months, t he food you bought just didn't last and you didn't have money to get more. Sometimes true 07/2023 PRAPARE - Transportation Answer Date Re corded In the past 12 months, has l ack of transportation kept you from medical appointments or from getting medications? No 07/2023 In the past 12 months, has l ack of transportation kept you from meetings, work, or from getting things needed for daily living? No 05/27/2024 Housing Stability Vital Sign Answer Alex e Recorded In the last 12 months, was t here a time when you were not able to pay the mortgage or rent on time? No 05/27/2024 Number of Times Moved in the Last Year Not on fi le 05/27/2024 At any time in the past 12 m [facility], were you homeless or living in a alf (including now)? No 05/27/2024 Comments No Sex and Gender Information Value Date Recorded Sex Assigned at Female 04/09/2023 7:04 PM EDT Legal Sex Female 7:04 PM EDT Gender Identity Female 04/09/2023 7:04 PM EDT Sexual Orientation Not on file documented as of this encounter Last Filed Vital Signs Vital Sign Reading Time Taken Comments Blood Pressure 126/100 12/29/2024 9:20 AM EDT Pulse - - Temperature - - Respiratory Rate - - Oxygen Saturation - - Inhaled Oxygen Concentration - - Weight 70.9 kg (156 lb 4 oz) 12/29/2024 9:20 AM EDT Height - - Body Mass Index 27.68 11/21/2024 8:00 AM EDT documented in this encounter Progress Notes * NATHAN oMsqueda - 12/29/2024 9:00 AM EDT Reason for Appointment: Patient ID: Keira Yu is a 44 y.o. female who presents for Well Women Visit Patient presents today for Annual Exam. MEDICATIONS Current Outpatient Medications Medication Instructions ADRENAPLEX 1 capsule, Oral, Daily liothyronine (Cytomel) 5 MCG tablet Take 1.5 tablet in AM and 1 tablet in PM on an empty stomach. 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 Overweight (BMI 25.0-29.9) 04/17/2023 Sleep dysfunction with arousal disturbance 05/30/2024 Left lower quadrant abdominal pain 09/12/2024 Bloody stool 09/12/2024 Diarrhea 09/12/2024 Dark stools 09/12/2024 Diverticulitis 09/12/2024 Resolved Ambulatory Problems Diagnosis Date Noted No Resolved Ambulatory Problems Past Medical History: Diagnosis Date Allergies History of PCOS Obesity HISTORY PAST MEDICAL HISTORY SOCIAL HISTORY Past Medical History: Diagnosis Date Allergies History of PCOS [facility], [facility] Obesity Social History Tobacco Use Smoking status: Former Types: Cigarettes Smokeless tobacco: Never Vaping Use Vaping status: Never Used Substance Use Topics Alcohol use: Yes Alcohol/week: 4.0 standard drinks of alcohol Types: 4 Standard drinks or equivalent per week Comment: Caffeine intake: 2-3 cups per day Drug use: Never FAMILY HISTORY Family History Problem Relation Name Age of Onset Sleep apnea Father Rheum arthritis Father Diabetes Father Arthritis Father Migraines Sister Thyroid disease Sister SURGICAL HISTORY No past surgical history on file. REVIEW OF SYSTEMS Review of Systems: Review of Systems Constitutional: Negative. HENT: Negative. Eyes: Negative. Respiratory: Negative. Cardiovascular: Negative. Gastrointestinal: Negative. Genitourinary: Negative. Musculoskeletal: Negative. Skin: Negative. Neurological: Negative. All other systems reviewed and are negative. Hematological: Negative. Endocrine: Negative. Allergic/Immunologic: Negative. OBJECTIVE Objective: Physical Exam Constitutional: Appearance: Normal appearance. She is well-developed. Genitourinary: Vulva normal. Right Adnexa: not tender and no mass present. Left Adnexa: not tender and no mass present. No cervical discharge. Breasts: Breasts are soft. Right: Normal. Left: Normal. HENT: Head: Normocephalic. Nose: Nose normal. Mouth/Throat: Mouth: Mucous membranes are moist. Cardiovascular: Rate and Rhythm: Normal rate and regular rhythm. Pulmonary: Effort: Pulmonary effort is normal. Breath sounds: Normal breath sounds. Abdominal: General: Bowel sounds are normal. There is no distension. Palpations: Abdomen is soft. Tenderness: There is no abdominal tenderness. There is no guarding or rebound. Musculoskeletal: General: No swelling. Normal range of motion. Cervical back: Normal range of motion. Right lower leg: No edema. Left lower leg: No edema. Neurological: General: No focal deficit present. Mental Status: She is alert and oriented to person, place, and time. Skin: General: Skin is warm and dry. Psychiatric: Mood and Affect: Mood normal. Behavior: Behavior normal. Vitals and nursing note reviewed. Exam conducted with a medical clinic manager present. Vitals: Estimated body mass index is 27.68 kg/m?? as calculated from the following: Height as of 11/21/24: 5' 3 . Weight as of this encounter: 156 lb 4 oz. BP: (!) 126/100 No LMP recorded (lmp unknown). ASSESSMENT & PLAN ICD-10-CM 1. Well woman exam with routine gynecological exam Z01.419 THIN PREP TIS PAP AND HR HPV DNA 2. Encounter for screening mammogram for malignant neoplasm of breast Z12.31 Bilateral screening mammogram Bilateral screening mammogram Annual Exam: Patient presents today for an annual exam. Patient states she is doing well and has no complaints. Pap was obtained without difficulty. Patient is advised to follow up with PCP in regards to her elevated blood pressure here in office. Patient did have labs completed last month and encouraged to call and let PCP know this is still elevated since her last appointment with them. Orders Placed This Encounter Procedures Bilateral screening mammogram Follow Up: Patient is to return in one year for annual unless needed otherwise. Documented by Julissa Bueno LPN on behalf of: NATHAN Mosqueda documented in this encounter Plan of Treatment Upcoming Encounters Date Type Department Care Team (Late st Contact Info) Description 05/15/2025 8:00 AM EDT Office Visit [facility] [address] [address] Yao Bowden MD [address] [facility] 100 [place] [address] (Fax) 01/09/2026 8:30 AM EDT Office Visit [facility] [address] [facility] [place] [address] Antwan Hope, [address] [place], [place] [id number] Scheduled Orders Name Type Priority Associated Diagnoses Orde r Schedule Bilateral screening mammogram Imaging Routine Encounter for screening mammogram for malignant neoplasm of breast Expected: 12/29/2024 (Approximate), Expires: 02/28/2026 THIN PREP TIS PAP AND HR HPV DNA Pathology and Cytology Routine Well woman exam with routine gynecological exam Ordered: 12/29/2024 documented as of this encounter Visit Diagnoses Diagnosis Well woman exam with routine gynecological exam Routine gynecological examination Encounter for screening mammogram for malignant neoplasm of breast documented in this encounter Care Teams Author'S Agent Relationship Specialty Start Date End Date Haylie Mcnamara MD [address] [place] [phone] PCP - General 05/13/23 Yao Bowden MD [address] [place] [id number] PCP - Fay Leary 09/25/23 documented as of this encounter
--- OUTSIDE RECORDS SUMMARY | 2024-12-29 20:04 | XMS_ITS | Encounter Summary ---
Author Organization [facility] Address [address] [place] [address] Care Team Providers Care Laser Beam Color Scanner Operator Name Role Phone Haylie Mcnamara MD Primary Care Provider [phone] Yao Bowden MD Unavailable [phone] Encounter Details Date Type Department Care Team (Late Contact Info) Description 05/11/2023 Orders Only [facility] [address] [place] [address] Yao Bowden MD [address] [address] (Fax) Social History Tobacco Use Types Packs/Day Years Used Date Smoking Tobacco: Never Assessed Comments Unknown Sex and Gender Information Value Date Recorded Sex Assigned at Female 04/09/2023 7:04 PM EDT Legal Sex Female 7:04 PM EDT Gender Identity Female 04/09/2023 7:04 PM EDT Sexual Orientation Not on file documented as of this encounter Plan of Treatment Upcoming Encounters Date Type Department Care Team (Late Contact Info) Description 05/15/2025 8:00 AM EDT Office Visit [facility] [address] [facility] 100 [place] [address] Yao Bowden MD 112 [facility] 100 [place] [address] (Fax) 01/09/2026 8:30 AM EDT Office Visit [facility] [address] [facility] [place] [phone] Antwan Hope, DO [address] [place] [address] documented as of this encounter Procedures Procedure Name Priority Date/Time Associated Diagnosis Comments T3, REVERSE Routine 05/05/2023 1:04 PM EDT T3, FREE Routine 05/05/2023 1:04 PM EDT T3, TOTAL Routine 05/05/2023 1:04 PM EDT TSH Routine 05/05/2023 1:04 PM EDT T4, FREE Routine 05/05/2023 1:04 PM EDT documented in this encounter Results * T3, reverse (05/05/2023 1:04 PM EDT) Blood Venous blood specimen / Unknown Yao Bowden MD LAB BLOOD ORDERABLES Final R esult * TSH (05/05/2023 1:04 PM EDT) Blood Venous blood specimen / Unknown Yao Bowden MD LAB BLOOD ORDERABLES Final R esult * T4, free (05/05/2023 1:04 PM EDT) Blood Venous blood specimen / Unknown Yao Bowden MD LAB BLOOD ORDERABLES Final R esult * T3 (05/05/2023 1:04 PM EDT) Blood Venous blood specimen / Unknown Yao Bowden MD LAB BLOOD ORDERABLES Final R esult * T3, free (05/05/2023 1:04 PM EDT) Blood Venous blood specimen / Unknown Yao Bowden MD LAB BLOOD ORDERABLES Final R esult documented in this encounter Visit Diagnoses Not on filedocumented in this encounter Care Teams Laser Beam Color Scanner Operator Relationship Specialty Start Date End Date Haylie Mcnamara MD [address] [place] [phone] PCP - General 05/13/23 Yao Bowden MD [address] [place] [id number] PCP - [place] [facility] 09/25/23 documented as of this encounter
--- OUTSIDE RECORDS SUMMARY | 2024-12-29 20:04 | XMS_ITS | Clinical Summary ---
Author Organization [employer] [facility] tem Address [facility] [employer]-[id number] [address] [place] [address] Care Team Providers Care Teaching Associate Name Role Phone Haylie Mcnamara MD Primary Care Provider [phone] Allergies Active Allergy Reactions Criticality Noted Date Comments Melatonin Other (See Comments) 05/30/2024 nightmare Penicillins Rash Low 04/17/2023 Other Reaction(s): Unknown Medications liothyronine (CYTOMEL) 5 MCG tablet Take 1 tablet (5 mcg total) by mouth in the morning and 1 tablet (5 mcg total) before bedtime. Active SUMAtriptan (IMITREX) 50 mg tablet Take 1 tablet (50 mg total) by mouth once as needed for migraine. May repeat in 2 hours if unresolved. Do not exceed 200 mg in 24 hours. Active NON FORMULARY Take 1 each by mouth daily as needed. Med Name: Adrena Plex supplement Active NON FORMULARY Take 1 each by mouth in the morning. Med Name: Elderberry gummies. Active ibuprofen (MOTRIN) 400 mg tablet Take 1 tablet (400 mg total) by mouth every 6 (six) hours as needed for pain. Active Active Problems No known active problems Encounters Date Type Department Care Team Description 10/17/2024 Telephone [facility] [address] [place] [id number] Nirmala Monroe CMA 10/10/2024 8:00 AM EDT - 10/10/2024 8:30 AM EDT Surgery [facility] - Surgery [address] [place] [address] Prashant Pinto, DO COLONOSCOPY DIAGNOSTIC / SCREENING [54698 (CPT )] 10/10/2024 7:52 AM EDT Anesthesia Event [facility] - Surgery [address] [place] [address] Manjeet Garsia MD 10/10/2024 6:19 AM EDT - 10/10/2024 8:30 AM EDT Hospital Encounter [facility] - Surgery [address] [place] [address] Prashant Pinto, DO Left lower quadrant abdominal pain (Primary Dx) Discharge Disposition: Home 10/10/2024 Travel 10/04/2024 3:40 PM EDT Support Visit [facility] - Pre Admit [address] [place] [address] 09/29/2024 9:00 AM EST Office Visit [facility] [address] [place] [address] Giselle Coon, [employer] Left lower quadrant pain (Primary Dx); Altered bowel habits 09/29/2024 Travel from Last 3 Months Family History Medical History Relation Name Comments Diabetes Father Vamsi Gaines Border Line Relation Name Status Comments Father Vamsi Gaines Alive Mother Alive Social History Tobacco Use Types Packs/Day Years Used Date Smoking Tobacco: Former Cigarettes 0.1 2 2 000 - 2002 Smokeless Tobacco: Never Tobacco Cessation:Counseling Given: Not Answered Alcohol Use Standard Drinks/Week Comments Not Currently 0 (1 standard drink = 0.6 oz pur e alcohol) socially Comments No Sex and Gender Information Value Date Recorded Sex Assigned at Female 09/20/2024 1:03 PM EST Legal Sex Female 11:50 AM EST Gender Identity Female 09/20/2024 1:03 PM EST Sexual Orientation Straight 09/20/2024 1: 03 PM EST Last Filed Vital Signs Vital Sign Reading Time Taken Comments Blood Pressure 133/105 10/10/2024 8:25 AM EDT Pulse 78 10/10/2024 8:25 AM EDT Temperature 36.8 C (98.2 F) 10/10/2024 6:35 AM EDT Respiratory Rate 24 10/10/2024 8:25 AM EDT Oxygen Saturation 99% 10/10/2024 8:25 AM EDT Inhaled Oxygen Concentration - - Weight 70.3 kg (155 lb) 10/10/2024 6:35 AM EDT Height 160 cm (5' 3 ) 10/10/2024 6:35 AM EDT Body Mass Index 27.46 10/10/2024 6:35 AM EDT Plan of Treatment Health Maintenance Due Date Last Done Comments Depression Screening 1992 Adult BMI Follow Up Plan 1998 Pap Smear 2001 DTaP,Tdap and Td Vaccines (2 - Tdap) 02/07/202201/24 Influenza Vaccine 03/27/2025 Adult BMI Screening 10/10/2025 10/10/2024 Tobacco Screening 10/10/2025 10/10/2024 Medical Devices Not on file Procedures Procedure Name Priority Date/Time Associated Diagnosis Comments LAB RESULTS REPORT (SCANNED INTO EHR) 10/17/2024 3:42 PM EDT SURGICAL PATHOLOGY Routine 10/10/2024 8: 04 AM EDT MD COLONOSCOPY FLX DX W/COLLJ SPEC WHEN PFRMD 10/10/2024 7:52 AM EDT left lower quadrant pain COLONOSCOPY 10/10/2024 7:48 AM EDT PROVATION COLONOSCOPY Routine 10/10/2024 6:55 AM EDT POCT , URINE (NUCG) Routine 10/10/2024 6:32 AM EDT from Last 3 Months Results * Lab Results Report (Scanned Into EHR) (10/17/2024 3:42 PM EDT) Narrative 10/17/2024 3:42 PM EDT Ordered by an unspecified provider. us Not In System Ref Prov LAB BLOOD ORDERABLES Diana l Result * Surgical Pathology (10/10/2024 8:04 AM EDT) Tissue (Colon, rectal sigmoid biopsy) 10/10/2024 8:04 AM EDT Comment:Pre-op diagnosis: left lower quadrant pain Narrative COPATH - 10/14/2024 4:14 PM EDT [facility] [address] [place] [address] Surgical Pathology Consultation Patient Name:ADALI JUARES:1980 (Age: 43)Gender:FTaken:10/10/2024Reported:10/14/2024Physician(s):Prashant Pinto D.O. ([phone])Copy To: Rec. #:[id number]: #[id number] Final Pathologic Diagnosis Colon, rectosigmoid, biopsy: Mild congestion and rare muciphages within the lamina propria. Report Electronically Signed Out [facility]/10/14/2024IRUMA BUENO MD Interpretation [place] [address], License number: [id number]. Clinical History Left lower quadrant pain. Gross Description Received in formalin labeled JUARES, rectosigmoid junction are 2 meier bits of soft tissue, ranging from 0.2-0.3 cm in greatest dimension. Filtered and submitted in a single cassette. (1, ns, [id number], m7) MG [facility]/10/10/2024GR Specimen(s) Received Rectosigmoid junction biopsy Fee Codes(s): 1; [address] us Prashant Pinto DO PATHOLOGY/CYTOLOGY ORDERABL ES Final Result COPATH * Colonoscopy (10/10/2024 7:48 AM EDT) 10/10/2024 7:48 AM EDT Narrative PM CARDIOVASCULAR - 10/10/2024 8:09 AM EDT [facility] Patient Name: Adali Juares Procedure Date No Time: 10/10/2024 CSN : [id number] Date of : 1980 Admit Type: Outpatient Age: 43 Room: [place] [address] Gender: Female Note Status: Finalized Attending MD: Prashant Pinto DO, Procedure: Colonoscopy Indications: Abdominal pain in the left lower quadrant Providers: Prashant Pinto DO Referring MD: Prashant Pinto DO Medicines: Propofol per Anesthesia Complications: No immediate complications. Procedure: After I obtained informed consent, the scope was passed under direct vision. Throughout the procedure, the patient's blood pressure, pulse, and oxygen saturations were monitored continuously. The [id number] #[id number] ADULT COLONOSCOPE was introduced through the anus and advanced to the cecum, identified by appendiceal orifice and ileocecal valve. The colonoscopy was performed without difficulty. The patient tolerated the procedure well. The quality of the bowel preparation was excellent. Findings: The perianal and digital rectal examinations were normal. A localized area of mildly erythematous mucosa was found in the recto-sigmoid colon. Biopsies were taken with a cold forceps for histology. The exam was otherwise without abnormality on direct and retroflexion views. Estimated Blood Loss: Estimated blood loss: none. Impression: - Erythematous mucosa in the recto-sigmoid colon. Biopsied. - The examination was otherwise normal on direct and retroflexion views. Recommendation: - Discharge patient to home. - Patient has a contact number available for emergencies. The signs and symptoms of potential delayed complications were discussed with the patient. Return to normal activities tomorrow. Written discharge instructions were provided to the patient. - Repeat colonoscopy in 10 years for screening purposes. - Return to my office PRN. Procedure Code(s): --- Professional --- 23484, Colonoscopy, flexible; with biopsy, single or multiple Diagnosis Code(s): --- Professional --- K63.89, Other specified diseases of intestine R10.32, Left lower quadrant pain CPT copyright 2022 [employer]. All rights reserved. The codes documented in this report are preliminary and upon simulation technician review may be revised to meet current compliance requirements. DO Prashant Guardado DO 10/10/2024 8:09:21 AM Number of Addenda: 0 Note Initiated On: 10/10/2024 7:48 AM Procedure Note Prashant Pinto DO - 10/10/2024 [facility] Patient Name: Adali Juares Procedure Date No Time: 10/10/2024 CSN : [id number] Date of : 1980 Admit Type: Outpatient Age: 43 Room: [place] [address] Gender: Female Note Status: Finalized Attending MD: Prashant Pinto DO, Procedure: Colonoscopy Indications: Abdominal pain in the left lower quadrant Providers: Prashant Pinto DO Referring MD: Prashant Pinto DO Medicines: Propofol per Anesthesia Complications: No immediate complications. Procedure: After I obtained informed consent, the scope was passed under direct vision. Throughout theprocedure, the patient's blood pressure, pulse, and oxygen saturations were monitored continuously. [employer] [id number] #[id number] ADULT COLONOSCOPE was introduced through the anus and advanced to the cecum,identified by appendiceal orifice and ileocecal valve. The colonoscopy was performed without difficulty. The patient tolerated the procedure well. The qualityof the bowel preparation was excellent. Findings: The perianal and digital rectal examinations were normal. A localized area of mildly erythematous mucosa was found in the recto-sigmoid colon. Biopsies were taken with a cold forceps for histology. The exam was otherwise without abnormality on direct and retroflexion views. Estimated Blood Loss: Estimated blood loss: none. Impression: - Erythematous mucosa in the recto-sigmoid colon. Biopsied. - The examination was otherwise normal on directand retroflexion views. Recommendation: - Discharge patient to home. - Patient has a contact number available for emergencies. The signs and symptoms of potential delayed complications were discussed with thepatient. Return to normal activities tomorrow. Written discharge instructions were provided to thepatient. - Repeat colonoscopy in 10 years for screening purposes. - Return to my office PRN. Procedure Code(s): --- Professional --- 38041, Colonoscopy, flexible; with biopsy, singleor multiple Diagnosis Code(s): --- Professional --- K63.89, Other specified diseases of intestine R10.32, Left lower quadrant pain CPT copyright 2022 [employer]. All rights reserved. The codes documented in this report are preliminary and upon simulation technician reviewmay be revised to meet current compliance requirements. DO Prashant Guardado DO 10/10/2024 8:09:21 AM Number of Addenda: 0 Note Initiated On: 10/10/2024 7:48 AM us Prashant Pinto DO GI PROCEDURE ORDERABLES Fin al Result Performing Organization Address City/[facility]/ZIP Co de Phone Number PM CARDIOVASCULAR * Colonoscopy Report (10/10/2024 6:55 AM EDT) Narrative SYSTEMGENERATED, DOCUMENTATION - 10/10/2024 6:55 AM EDT This order has been auto-finalized for image and report archival in PACs. *For full report details, please reach out to your physician. This image is visible to you in MyChart.* Prashant Pinto DO IMG OR IMG ORDERABLES Final Result * POCT , urine (10/10/2024 6:32 AM EDT) Nursing urine Negative Negative^N egative 10/10/2024 3:31 PM EDT [facility] Urine / Unknown 10/10/2024 6 :32 AM EDT 10/10/2024 3:31 PM EDT Prashant Pinto DO POINT OF CARE TEST ORDERABL ES Final Result Performing Organization Address City/[facility] Co de Phone Number [address] [place] [address] from Last 3 Months Insurance [employer] Care Teams Teaching Associate Relationship Specialty Start Date End Date Haylie Mcnamara MD [address] [place] [address] PCP - General Family Medicine 09/19/24
--- OUTSIDE RECORDS SUMMARY | 2024-12-29 20:05 | XMS_ITS | CCD ---
Author Organization [facility] Care Team Providers Care Railroad Signal Operator Name Role Phone DR HAYLIE MENDEZ Primary Care Unavailable ANDREA, DR HAYLIE Harris Admitting Unavailable MENDEZ, DR HAYLIE Harris Attending Unavailable MENDEZ, DR HAYLIE Harris Consulting Unavailable MENDEZ, DR HAYLIE Harris Admitting Unavailable MENDEZ, DR HAYLIE Harris Attending Unavailable MENDEZ, DR HAYLIE Harris Consulting Unavailable MENDEZ, DR HAYLIE Harris Primary Care Unavailable MENDEZ, DR HAYLIE Harris Admitting Unavailable MENDEZ, DR HAYLIE Harris Attending Unavailable Bridgett Clarke Unavailable Mabel Sapp Unavailable Haylie Mendez Unavailable Haylie Mendez MD Primary Care Provider [phone] Yao Brooks MD Unavailable Yao Brooks MD Unavailable [phone] Haylie Mendez MD Primary Care Provider CAITY BUNCH Attending Unavailable HAYLIE MENDEZ Referring Unavailable HAYLIE MENDEZ Primary Care Unavailable HAYLIE MENDEZ Referring Unavailable HAYLIE MENDEZ Primary Care Unavailable DARLING BRIONES Admitting Unavailable DARLING BRIONES Attending Unavailable DARLING BRIONES Referring Unavailable HAYLIE MENDEZ Primary Care Unavailable Haylie Mendez MD Primary Care Provider [phone] EBONY HOPE Attending Unavailable YAO BROOKS Attending Unavailable YAO BROOKS Attending Unavailable YAO BROOKS Attending Unavailable Allergies Allergy Classification Reported Allergen(s) Allergy Type Date of Onset Reaction(s) Facility (6 sources) Penicillins; Translations: [PENICILLINS] Drug allergy (disorder) [address] [facility] Repository (4 sources) Penicillin G Drug Allergy yeast infection [email or web address] Other (10 sources) Penicillins Drug Allergy 3 Rash [facility] Healthcare (11 sources) Melatonin; Translations: [MELATONIN] Drug Allergy 4 Other [facility] Healthcare (3 sources) Melatonin Drug Allergy 4 Other (See Comments) [facility] Medications Current Medications Medication Drug Class(es) Dates Sig (Normalized) Sig (Original) ADRENAPLEX (9 sources) Start: 05-30-2024 take 1 capsule by mouth once daily ADRENAPLEX Indications: Adrenal cortex hypofunction (CMS/HCC) Take 1 capsule by mouth Daily 05/30/2024 Active Albuterol Sulfate 90 mcg/actuation HFA aerosol inhaler (4 sources) Start: 12-08-2024 take 1 puff(s) by inhalation every four to six hours as needed Albuterol Sulfate 90 mcg/actuation HFA aerosol inhaler Active 2 PUFF INHALATION EVERY 4-6 HOURS as needed for bronchospasm 6.7 December 08, 2024 12:00am Start: 04-27-2024 End: 08-11-2024 Albuterol Sulfate 90 mcg/act uation HFA aerosol inhaler Discontinued 2 INH INHALATION EVERY 4-6 HOURS as needed for shortness of breath or wheezing 6.7 14 April 27, 2024 12:00am August 11, 2024 10:26am Start: 04-27-2024 End: 08-11-2024 Albuterol Sulfate 90 mcg/act uation HFA aerosol inhaler Discontinued 2 INH INHALATION EVERY 4-6 HOURS as needed for shortness of breath or wheezing 6.7 14 April 26, 2024 11:00pm August 11, 2024 9:26am azithromycin 250 mg oral tablet (10 sources) Macrolide Antimicrobial Start: 12-08-2024 Azithromycin 250 mg tablet Active 0 PO .COMPLEX 6 December 08, 2024 12:00am For 250 mg dose pack: take 500 mg today (day 1), then 250 mg for 4 days (days 2-5) PO Start: 04-27-2024 End: 08-11-2024 Azithromycin 250 mg tablet Discontinued 0 PO .COMPLEX April 27, 2024 12:00am August 11, 2024 10:27am For 250 mg dose pack: take 500 mg today (day 1), then 250 mg for 4 days (days 2-5) PO Start: 11-18-2023 End: 04-27-2024 take 2 tablets by mouth once daily, then take 1 tablet by mouth once daily Azithromycin (Zithromax Z-Darek) 250 mg tablet Discontinued 250 MG PO Daily 6 November 18, 2023 12:00am April 27, 2024 10:14am take 2 tabs today and 1 daily for the next 4 days Start: 02-04-2023 Azithromycin 2 50 MG as directed Orally 2 tabs po today, then 1 tab daily x 4 more days for 5 Jan, Active benzonatate 200 mg oral capsule (1 source) Non-narcotic Antitussive Start: 12-08-2024 Benzonatate 200 mg capsule Active 200 MG PO 2-3 TIMES PER DAY as needed for cough December 08, 2024 12:00am ibuprofen 400 mg oral tablet (3 sources) Nonsteroidal Anti-inflammatory Drug take 1 tablet by mouth every six hours as needed for pain ibuprofen (MOTRIN) 400 mg tablet Take 1 tablet (400 mg total) by mouth every 6 (six) hours as needed for pain. Active liothyronine sodium 0.005 mg oral tablet (20 sources) l-Triiodothyronine Start: 11-21-2024 liothyronin e (Cytomel) 5 MCG tablet Indications: Euthyroid sick syndrome Take 1.5 tablet in AM and 1 tablet in PM on an empty stomach. SOLOMON; Sigma or Greenstone brands only 225 tablet 1 11/21/2024 Active Start: 11-21-2024 liothyronine ( Cytomel) 5 MCG tablet Indications: Euthyroid sick syndrome Take 1.5 tablet in AM and 1 tablet in PM on an empty stomach. SOLOMON; Sigma or Greenstone brands only 225 tablet 1 11/21/2024 Active Start: 12-01-2023 End: 05-30-2024 liothyronine (Cytomel) 5 MCG tablet Indications: ESS (euthyroid sick syndrome) Take 1 tablet (5 mcg) by mouth See administration instructions Take 1 tablet in AM and 1 tablet in PM on an empty stomach. SOLOMON; Sigma or Greenstone brands only 180 tablet 1 12/01/2023 05/30/2024 Discontinued (Dose adjustment) Start: 10-27-2023 End: 11-21-2024 take 1.5 tablets by mouth twice daily in the morning, then take 1 tablet by mouth twice daily in the evening Liothyronine 5 mcg tablet Active 0 PO Twice daily October 27, 2023 12:00am 1.5 tablet in am and 1 tablet [...] a day for 6 days November, Active NON FORMULARY (6 sources) take 1 dose by mouth once daily as needed NON FORMULARY Take 1 each by mouth daily as needed. Med Name: Adrena Plex supplement Active take 1 dose by mouth in the morn ing NON FORMULARY Take 1 each by mouth in the morning. Med Name: Elderberry gummies. Active peg 3350-sod sulf,pdmm-kdg-ttz 178.7-7.3-0.5 gram recon soln (1 source) Start: 09-29-2024 End: 09-30-2024 peg 3350-sod sulf,jkob-cfi-exc 178.7-7.3-0.5 gram recon soln Indications: Left lower quadrant pain Take 1 kit by mouth once daily for 1 dose. Please see instructional sheet given by physicians office. 1 each 09/29/2024 09/30/2024 Active SUMAtriptan 50 mg oral tablet (20 sources) Serotonin-1b and Serotonin-1d Receptor Agonist Start: [...] 50 MG PO Once as needed October 27, 2023 12:00am March 04, 2024 9:11am Start: 02-04-2023 SUMAtriptan (I mitrex) 50 MG tablet Take 50 mg by mouth if needed for migraine. 02/04/2023 Active Completed/Discontinued Medications Medication Drug Class(es) Dates Sig (Normalized) Sig (Original) dextromethorphan hydrobromide 15 mg / guaiFENesin 400 mg / pseudoephedrine hydrochloride 60 mg oral tablet (2 sources) alpha-Adrenergic Agonist, Uncompetitive H-unisgx-N-aspartat e Receptor Antagonist, Sigma-1 Agonist Start: 11-28-2024 End: 12-08-2024 take 4 tablets by mouth every twenty-four hours as needed Pseudoephedrine-D m-Guaifenesin (Capmist Dm) 60-15-400 mg tablet Discontinued 1 TAB PO EVERY 4-6 HOURS as needed for cold symptoms November 28, 2024 12:00am December 08, 2024 2:35pm do not exceed 4 doses per 24 hrs nystatin [id number] unt/ml oral suspension (3 sources) Polyene Antifungal Start: 04-27-2024 End: 08-11-2024 take 1 mL by mouth four times daily Nystatin 100,000 unit/mL suspension Discontinued 5 ML PO Four times daily 140 7 April 27, 2024 12:00am August 11, 2024 10:27am swish and swallow Problems Active Problems Problem Classification Problem Date Documented Da te Episodic/Chronic Abdominal pain (14 sources) Left lower quadrant pain; Translations: [Left lower quadrant pain] Onset: 09-12-2024 09-12-2024 Episodic Acute and chronic tonsillitis (3 sources) Acute bacterial tonsillitis; Translations: [Acute tonsillitis due to other specified organisms] 04-27-2024 Episodic Acute bronchitis (1 source) Acute bronchitis, unspecified; Translations: [ACUTE BRONCHITIS UNSPECIFIED] Onset: 02-08-2021 Episodic Allergic reactions (6 sources) Eczema; Translations: [Dermatitis, unspecified] 10-27-2023 Episodic Diverticulosis and diverticulitis (8 sources) Diverticulitis; Translations: [Diverticulitis of intestine, part unspecified, without perforation or abscess without bleeding] Onset: 09-12-2024 09-12-2024 Chronic Gastrointestinal hemorrhage (6 sources) Blood-tinged feces; Translations: [Melena] Onset: 09-12-2024 09-12-2024 Episodic Immunizations and screening for infectious disease (1 source) Contact with or exposure to other viral diseases; Translations: [Exposure to 2019 novel coronavirus] 04-27-2024 Episodic Malaise and fatigue (14 sources) Fatigue; Translations: [Chronic fatigue, unspecified] Onset: 04-17-2023 04-17-2023 Chronic Mycoses (3 sources) Candidiasis of mouth; Translations: [Candidal stomatitis] 04-27-2024 Episodic Other endocrine disorders (12 sources) Adrenal cortical hypofunction; Translations: [Unspecified adrenocortical insufficiency] Onset: 04-17-2023 04-17-2023 Chronic Other gastrointestinal disorders (14 sources) Diarrhea; Translations: [Diarrhea, unspecified] Onset: 09-12-2024 10-27-2023 Episodic Other gastrointestinal disorders (2 sources) Diarrhea, unspecified; Translations: [Diarrhea] 10-27-2023 Episodic Other gastrointestinal disorders (8 sources) Dark stools; Translations: [Other fecal abnormalities] Onset: 09-12-2024 09-12-2024 Episodic Other gastrointestinal disorders (1 source) Altered bowel function; Translations: [Change in bowel habit] 09-29-2024 Episodic Other lower respiratory disease (8 sources) Habitual snoring; Translations: [Snoring] 10-27-2023 Episodic Other lower respiratory disease (2 sources) Apnea; Translations: [Apnea, not elsewhere classified] Episodic Other nutritional; endocrine; and metabolic disorders (14 sources) Body mass index 25-29 - overweight; Translations: [Overweight] Onset: 04-17-2023 04-17-2023 Episodic Other screening for suspected conditions (not mental disorders or infectious disease) (4 sources) Encounter for screening for malignant neoplasm of cervix; Translations: [ENC SCREENING MALIG NEOPLASM CERV] Onset: 02-28-2021 Episodic Other upper respiratory infections (6 sources) Chronic sinusitis; Translations: [Chronic sinusitis, unspecified] 10-27-2023 Chronic Other upper respiratory infections (13 sources) Acute sinusitis, unspecified; Translations: [Acute pharyngitis, unspecified] Episodic Ovarian cyst (2 sources) Cyst of left ovary; Translations: [Unspecified ovarian cyst, left side] 09-12-2024 Episodic Residual codes; unclassified (4 sources) Obstructive sleep apnea (adult) (pediatric); Translations: [OBSTRUCTIVE SLEEP APNEA] Onset: 03-11-2021 Chronic Residual codes; unclassified (11 sources) Sleep dysfunction with arousal disturbance; Translations: [Other sleep disorders] Onset: 05-30-2024 05-30-2024 Chronic Residual codes; unclassified (1 source) Pain Onset: 09-29-2024 Episodic Thyroid disorders (6 sources) Hypothyroidism; Translations: [Hypothyroidism, unspecified] 10-27-2023 Chronic Thyroid disorders (14 sources) Sick-euthyroid syndrome; Translations: [Sick-euthyroid syndrome] Onset: [...] Spondylosis; intervertebral disc disorders; other back problems (12 sources) Cervico-occipital neuralgia; Translations: [Occipital neuralgia] Onset: 11-21-2015 10-27-2023 Episodic Unclassified (1 source) CONTACT W/AND (SUSP) EXPOS COVID-19; Translations: [CONTACT W/AND (SUSP) EXPOS COVID-19] Onset: 01-31-2021 Unclassified (1 source) Contact with and (suspected) exposure to covid-19 Z20.822 Results Test Name Value Interpretation Reference Range Facility HCG ( test) Ql (U)o n 10-10-2024 Beta HCG ( test) Ql (U) Negative Normal NEG [facility] Comment on above: Performed By: #### 2 106-3 #### [facility] ([id number]) [address] [place] [address], [place] [address] Surgical Pathologyon 025 Surgical Pathology [facility] Comment on above: Result Comment: [facility] [address] [place] [address] Surgical Pathology Consultation Patient Name:KEIRA JUARES:1980 (Age: 43)Gender:FTaken:10/10/2024Reported:10/14/2024Physician(s):Carlos Briones D.O. ([phone])Copy To: Rec. #:[id number]: #[id number] Final Pathologic Diagnosis Colon, rectosigmoid, biopsy: Mild congestion and rare muciphages within the lamina propria. Report Electronically Signed Out w/10/14/2024IRVING MD MYLES Interpretation performed at [employer] [place] [address], License number: [id number]. Clinical History Left lower quadrant pain. Gross Description Received in formalin labeled BLANQUITA, rectosigmoid junction are 2 meier bits of soft tissue, ranging from 0.2-0.3 cm in greatest dimension. Filtered and submitted in a single cassette. (1, ns, [id number], m7) [place] [facility] [place]GR Specimen(s) Received Rectosigmoid junction biopsy Fee Codes(s): 1; 67820 US PELVIS W/ TRANSVAGINALon 09-12-2024 [place] [address] Ultrasound Report Signed Patient: KEIRA JUARES MR#: [id number] : 1980 Acct:[id number] Age/Sex: 43 / F ADM Date: 09/12/24 Loc: US Attending Dr: Ebony Hope D.O. Ordering Physician: Ebony Hope D.O. Date of Service: 09/12/24 Procedure(s): US pelvis w/ transvaginal Accession Number(s): [id number] cc: Haylie Mendez M.D.; Ebony Hope D.O. [address] [address] Patient Name: KEIRA JUARES MRN: [facility]:[id number] date: 1980 Sex: F Assigned Patient Location: Current Patient Location: US Accession/Order Number: [id number] Exam Date: 09/12/2024 16:15 Report Date: 09/12/2024 19:48 At the request of: EBONY HOPE Procedure: US pelvis w/ transvaginal US pelvis w/ transvaginal HISTORY: LEFT OVARIAN CYST N83.202 COMPARISONS: 04/15/2025 TECHNIQUE: Transabdominal and transvaginal imaging the pelvis was performed. FINDINGS: UTERUS: Normal in size and echogenicity. The uterus measures 7.1 x 3.0 x 4.1 cm. MYOMETRIUM:Unremarka ble. ENDOMETRIUM: The endometrium is within normal limits. The endometrium measures0.7 cm which is within normal limits. RIGHT OVARY: There is normal vascular flow to the right ovary. There are multiple follicles present in the right ovary. A dominant follicle measures 2.0 x 1.2 x 1.7 cm. No suspicious ovarian masses in the right ovary. The right ovary measures 4.9 x 2.2 x 3.5 cm and is mildly enlarged. LEFT OVARY: There is normal vascular flow to the left ovary. There is a dominant follicle in the left ovary measuring 1.4 x 0.9 x 1.47 m. The left ovary measures 3.6 x 1.4 x 2.3 cm and is normal in size. The cyst seen in the left ovary on the previous CT scan is no longer present and may have recently ruptured given the free fluid in the left adnexa adjacent to the left ovary. OTHER:There is a small amount of free fluid predominantly in the left adnexa. US/US pelvis w/ transvaginal IMPRESSION: Multiple follicles on both ovaries. There is a small amount of free fluid in the left adnexa adjacent to the left ovary. This may be secondary to Recently ruptured ovarian cyst from prior CT scan. No suspicious ovarian masses or evidence of ovarian torsion. Electronically authenticated by: CHARLEE GUARDADO Date: 09/12/2024 19:48 Dictated By: Charlee Guardado M.D. Signed By: 09/12/241949 DD/ 47 TD/TT: Veterinary Surgery Technician: [facility] Radiology, Radiologist, MD - 09/12/2024 [place] [address] Ultrasound Report Signed Patient: KEIRA JUARES MR#: [id number] : 1980 Acct:[id number] Age/Sex: 43 / F ADM Date: 09/12/24 Loc: US Attending Dr: Ebony Hope D.O. Ordering Physician: Ebony Hope D.O. Date of Service: 09/12/24 Procedure(s): US pelvis w/ transvaginal Accession Number(s): [id number] cc: Haylie Mendez M.D.; Ebony Hope D.O. [address] [place] [id number] Patient Name: KEIRA JUARES MRN: [id number] date: 1980 Sex: F Assigned Patient Location: US Current Patient Location: US Accession/Order Number: [id number] Exam Date: 09/12/2024 16:15 Report Date: 09/12/2024 19:48 At the request of: EBONY HOPE Procedure: US pelvis w/ transvaginal US pelvis w/ transvaginal HISTORY: LEFT OVARIAN CYST N83.202 COMPARISONS: 04/15/2025 TECHNIQUE: Transabdominal and transvaginal imaging the pelvis was performed. FINDINGS: UTERUS: Normal in size and echogenicity. The uterus measures 7.1 x 3.0 x 4.1 cm. MYOMETRIUM:Unremarka ble. ENDOMETRIUM: The endometrium is within normal limits. The endometrium measures0.7 cm which is within normal limits. RIGHT OVARY: There is normal vascular flow to the right ovary. There are multiple follicles present in the right ovary. A dominant follicle measures 2.0 x 1.2 x 1.7 cm. No suspicious ovarian masses in the right ovary. The right ovary measures 4.9 x 2.2 x 3.5 cm and is mildly enlarged. LEFT OVARY: There is normal vascular flow to the left ovary. There is a dominant follicle in the left ovary measuring 1.4 x 0.9 x 1.47 m. The left ovary measures 3.6 x 1.4 x 2.3 cm and is normal in size. The cyst seen in the left ovary on the previous CT scan is no longer present and may have recently ruptured given the free fluid in the left adnexa adjacent to the left ovary. OTHER:There is a small amount of free fluid predominantly in the left adnexa. US/US pelvis w/ transvaginal IMPRESSION: Multiple follicles on both ovaries. There is a small amount of free fluid in the left adnexa adjacent to the left ovary. This may be secondary to Recently ruptured ovarian cyst from prior CT scan. No suspicious ovarian masses or evidence of ovarian torsion. Electronically authenticated by: CHARLEE GUARDADO Date: 09/12/2024 19:48 Dictated By: Charlee Guardado M.D. Signed By: 09/12/241949 DD/ 47 TD/TT: Veterinary Surgery Technician: [facility] Radiology Study observation (narrative) [facility] US PELVIS W/ TRANSVAGINALOrd ered By: Radiologist Radiology on 09-12-2024 [facility] Mengero e Work Phone: Urinalysis macro (dipstick) panel (U)on 09-12-2024 Bilirubin, UA Negative Negative - 4(70) +++ mg/dL [facility] Blood, UA Positive Negative - 50 Mohan/mcL [facility] Comment on above: trace Clarity, UA Clear [facility] re Color, UA Yellow [facility] e Glucose, UA Negative Negative - 2000(110) ++++ mg/dL [facility] Interpretation and review of laboratory results Abnormal [facility] Ketones, UA Negative Negative - 160(16) ++++ mg/dL [facility] Leukocytes, UA Trace Negative - 500+++ Long/mcL [facility] Nitrite, UA Negative Negative - Positive [facility] pH, UA 5.5 5 - 9 [facility] e Protein, UA Negative Negative - 2000(20) ++++ mg/dL [facility] Spec Grav, UA 1.01 1 - 1.03 [facility] Urobilinogen, UA 0.2 0.2 - 12 mg/dL [facility] No Panel InformationOrdered By: Kathy Gloria on 04-27-2024 Quick Strep (POC) [facility] No Panel InformationOrdered By: Radha Gatica on 11-18-2023 Quick Strep (POC) [facility] COVID + FLU Quick Testingon 02-02-2023 SARS-CoV-2 (COVID-19) RNA AURELIA+probe Ql (Unsp spec) Negative [email or web address] Other COVID + FLU Quick Testing Negative [email or web address] Other Quick Strepon 02-02-2023 S. pyogenes Org specific cx Ql (Throat) Negative [facility] Other Quick Strep [email or web address] Other Quick Strepon 10-23-2022 S. pyogenes Org specific cx Ql (Throat) Negative [facility] Other Quick Strep [email or web address] Other PAP ACOG PANEL 2: 30 to 65on 03-05-2021 . . Normal [facility] Comment on above: Result Comment: Perf ormed at: WB Performed By: #### [id number] #### [facility] [address] [address] Krishna Medrano Age Gdln ACOG Testing 30-65 Normal [facility] Comment on above: Performed By: #### [id number] #### [facility] [address] [place], [place] [address] Krishna Medrano DIAGNOSIS: Comment Normal [facility] Comment on above: Result Comment: NEGA TIVE FOR INTRAEPITHELIAL LESION OR MALIGNANCY. THIS SPECIMEN WAS RESCREENED PART OF OUR BOND MANAGER PROGRAM. Performed at: WB Performed By: #### 4 [id number] #### [facility] [address] [place], [place] [address] Krishnakrunal Medrano HPV Aptima Negative Normal Negative [facility] Comment on above: Result Comment: This nucleic acid amplification test detects fourteen high-risk HPV types (16,18,31,33,35,39,45,51,52,56,58,59,66,68) without differentiation. Performed at: =G Performed By: #### 4 [id number] #### [facility] [address] [place] [address] Krishna Marquezen Methodology: Comment Normal [facility] Comment on above: Result Comment: This liquid based ThinPrep(R) pap test was screened with the use of an image guided system. Performed at: WB Performed By: #### [id number] #### [facility] [address] [place] [address] Krishna Medrano Note: Comment Normal [facility] Comment on above: Result Comment: The Pap smear is a screening test designed to aid in the detection of premalignant and malignant conditions of the uterine cervix. It is not a diagnostic procedure and should not be used as the sole means of detecting cervical cancer. Both false-positive and false-negative reports do occur. . Performed at: WB Performed By: #### [id number] #### [facility] [address] [place] [address] Krishna Medrano Performed by: Comment Normal [facility] Comment on above: Result Comment: Juan Luis Leiva Chemical Unit Operator (ASCP) Performed at: WB Performed By: #### [id number] #### [facility] [address] [place] [address] Krishna Medrano QC reviewed by: Comment Normal [facility] Comment on above: Result Comment: Veronique Eddy, Chemical Unit Operator (ASCP) Performed at: WB Performed By: #### [id number] #### [facility] [address] [place] [address] Krishna Medrano Specimen adequacy: Comment Normal [facility] Comment on above: Result Comment: Sati sfactory for evaluation. Endocervical and/or squamous metaplastic cells (endocervical component) are present. Performed at: WB Performed By: #### 4 [id number] #### [facility] [address] [place] [address] Krishna Medrano [facility]on SARS-CoV-2 (COVID-19) RNA AURELIA+probe Ql (Unsp spec) Not detected Normal NOT DETECTED [facility] Comment on above: Result Comment: This test is not yet approved or cleared by the [place] FDA. When there are no FDA-approved or cleared tests available, and other criteria are met, FDA can make tests available under an emergency access mechanism called an Emergency Use Authorization (EUA). The EUA for this test is supported by the Turning Machine Operator Helper of Health and Human Service's (HHS's) declaration [...] consistent with SARS-CoV-2. Performed By: #### C REBEL GAN #### [facility] [address] [place] [address] Krishna Medrano SYMPTOMATIC COVID-19 ANTIGEN on 01-31-2021 EUA Statement SEE BELOW Normal [facility] Comment on above: Result Comment: This test [...] is revoked sooner. Performed By: #### C REBEL GAN #### [facility] [address] [place] [address] Krishna Medrano SARS-CoV-2 (COVID-19) RNA AURELIA+probe Ql (Unsp spec) Negative Normal NEGATIVE [facility] Comment on above: Performed By: #### C VDAGS, CVDTBH #### [facility] [address] [place] [address] Krishna Medrano Vital Signs Date Time Vital Sign Value Performing Clinician Facility 12-08-2024 14:30-0400 Body height 160.02 cm [facility] 12-08-2024 14:30-0400 Body mass index (BMI) [Ratio] 27.1 kg/m2 [facility] 12-08-2024 14:30-0400 Body temperature 98.3 [degF] [facility] 12-08-2024 14:30-0400 Body weight 69.56 kg [facility] 12-08-2024 14:30-0400 Diastolic blood pressure 94 mm[Hg] [facility] 12-08-2024 14:30-0400 Heart rate 87 /min [facility] 12-08-2024 14:30-0400 Systolic blood pressure 141 mm[Hg] [facility] 11-28-2024 18:03-0400 Body height 160.02 cm [facility] 11-28-2024 18:03-0400 Body mass index (BMI) [Ratio] 27.6 kg/m2 [facility] 11-28-2024 18:03-0400 Body temperature 98.8 [degF] [facility] 11-28-2024 18:03-0400 Body weight 70.93 kg [facility] 11-28-2024 18:03-0400 Diastolic blood pressure 92 mm[Hg] [facility] 11-28-2024 18:03-0400 Heart rate 94 /min [facility] 11-28-2024 18:03-0400 Respiratory rate 19 /min [facility] 11-28-2024 18:03-0400 SaO2% (BldA) [Mass fraction] 97 % [facility] 11-28-2024 18:03-0400 Systolic blood pressure 127 mm[Hg] [facility] 11-21-2024 08:00-0400 Body height 160 cm Yao Brooks MD Work Phone: [facility] 11-21-2024 08:00-0400 Body mass index (BMI) [Ratio] 27.81 kg/m2 Yao Brooks MD Work Phone: [facility] 11-21-2024 08:00-0400 Body weight 71.22 kg Yao Brooks MD Work Phone: [facility] 10-04-2024 10:42-0400 Body height 161.3 cm [facility] 1 [facility] 10-04-2024 10:42-0400 Body mass index (BMI) [Ratio] 27.03 kg/m2 [facility] 1 [facility] 10-04-2024 10:42-0400 Body weight 70.31 kg [facility] 1 [facility] 09-29-2024 08:52-0500 Body height 161.3 cm Caity Bunch ELECT[employer]IC LOC[employer]IVE CRANE OPERATOR-PUBLIC SERVICE REPRESENTATIVE Work Phone: [facility] 09-29-2024 08:52-0500 Body mass index (BMI) [Ratio] 27.13 kg/m2 Caity Bunch ELECT[employer]IC [employer]IVE CRANE OPERATOR-PUBLIC SERVICE REPRESENTATIVE Work Phone: [facility] 09-29-2024 08:52-0500 Body weight 70.58 kg Caity Bunch ELECTRIC LOCOM[employer]IVE CRANE OPERATOR-PUBLIC SERVICE REPRESENTATIVE Work Phone: [facility] 09-29-2024 08:52-0500 Diastolic blood pressure 87 mm[Hg] Caity Bunch ELECTRIC LOCOM[employer]IVE CRANE OPERATOR-PUBLIC SERVICE REPRESENTATIVE Work Phone: [facility] 09-29-2024 08:52-0500 Heart rate 77 /min Caity Bunch ELECTRIC LOCOM[employer]IVE [employer]ANE OPERATOR-PUBLIC SERVICE REPRESENTATIVE Work Phone: [facility] 09-29-2024 08:52-0500 Systolic blood pressure 133 mm[Hg] Caity Bunch ELECT[employer]IC LOCOM[employer]IVE CRANE OPERATOR-PUBLIC SERVICE REPRESENTATIVE Work Phone: [facility] 09-12-2024 09:25-0500 Body mass index (BMI) [Ratio] 27.81 kg/m2 Ebony Kellero Work Phone: [facility] 09-12-2024 09:25-0500 Body weight 71.22 kg Ebony Jayy DO Work Phone: [facility] 09-12-2024 09:25-0500 Diastolic blood pressure 90 mm[Hg] Ebony Jayy DO Work Phone: [facility] 09-12-2024 09:25-0500 Systolic blood pressure 120 mm[Hg] Ebony Jayy DO Work Phone: [facility] 08-11-2024 09:21-0500 Body height 160.02 cm [facility] 08-11-2024 09:21-0500 Body mass index (BMI) [Ratio] 27.8 kg/m2 [facility] 08-11-2024 09:21-0500 Body weight 71.38 kg [facility] 08-11-2024 09:21-0500 Diastolic blood pressure 97 mm[Hg] [facility] 08-11-2024 09:21-0500 Heart rate 79 /min [facility] 08-11-2024 09:21-0500 Systolic blood pressure 147 mm[Hg] [facility] 05-30-2024 07:59-0500 Body height 160 cm Yao Brooks MD Work Phone: [facility] 05-30-2024 07:59-0500 Body mass index (BMI) [Ratio] 27.63 kg/m2 Yao Brooks MD Work Phone: [facility] 05-30-2024 07:59-0500 Body weight 70.76 kg Yao Brooks MD Work Phone: [facility] 04-27-2024 10:17-0400 Body height 160.02 cm [facility] 04-27-2024 10:17-0400 Body mass index (BMI) [Ratio] 23.7 kg/m2 [facility] 04-27-2024 10:17-0400 Body temperature 98.4 [degF] [facility] 04-27-2024 10:17-0400 Body weight 60.78 kg [facility] 04-27-2024 10:17-0400 Diastolic blood pressure 88 mm[Hg] [facility] 04-27-2024 10:17-0400 Heart rate 110 /min [facility] 04-27-2024 10:17-0400 Respiratory rate 18 /min [facility] 04-27-2024 10:17-0400 SaO2% (BldA) [Mass fraction] 95 % [facility] 04-27-2024 10:17-0400 Systolic blood pressure 133 mm[Hg] [facility] 11-18-2023 10:05-0400 Body height 160.02 cm [facility] 11-18-2023 10:05-0400 Body mass index (BMI) [Ratio] 27.6 kg/m2 [facility] 11-18-2023 10:05-0400 Body temperature 97.4 [degF] [facility] 11-18-2023 10:05-0400 Body weight 70.81 kg [facility] 11-18-2023 10:05-0400 Diastolic blood pressure 70 mm[Hg] [facility] 11-18-2023 10:05-0400 Heart rate 88 /min [facility] 11-18-2023 10:05-0400 Respiratory rate 16 /min [facility] 11-18-2023 10:05-0400 SaO2% (BldA) [Mass fraction] 98 % [facility] 11-18-2023 10:05-0400 Systolic blood pressure 120 mm[Hg] [facility] 10-27-2023 09:00-0400 Body height 157.48 cm [facility] 10-27-2023 09:00-0400 Body mass index (BMI) [Ratio] 28.7 kg/m2 [facility] 10-27-2023 09:00-0400 Body weight 71.21 kg [facility] 10-27-2023 09:00-0400 Diastolic blood pressure 78 mm[Hg] [facility] 10-27-2023 09:00-0400 Heart rate 111 /min [facility] 10-27-2023 09:00-0400 SaO2% (BldA) [Mass fraction] 98 % [facility] 10-27-2023 09:00-0400 Systolic blood pressure 124 mm[Hg] [facility] 02-04-2023 10:30-0400 Body height 157.48 cm Haylie Mendez Other [email or web address] Other 02-04-2023 10:30-0400 Body mass index (BMI) [Ratio] 27.72 kg/m2 Haylie Mendez Other [email or web address] Other 02-04-2023 10:30-0400 Body weight 68.77 kg Haylie Mendez Other [email or web address] Other 02-04-2023 10:30-0400 Diastolic blood pressure 102 mm[Hg] Haylie Mendez Other [email or web address] Other 02-04-2023 10:30-0400 Systolic blood pressure 136 mm[Hg] Haylie Mendez Other [email or web address] Other 02-02-2023 09:40-0400 Body height 157.48 cm Mabel Sapp Other [email or web address] Other 02-02-2023 09:40-0400 Body mass index (BMI) [Ratio] 28.27 kg/m2 Mabel Sapp Other [email or web address] Other 02-02-2023 09:40-0400 Body temperature 98.6 [degF] Mabel Sapp Other [email or web address] Other 02-02-2023 09:40-0400 Body weight 70.13 kg Mabel Sapp Other [email or web address] Other 02-02-2023 09:40-0400 Respiratory rate 18 /min Mabel Sapp Other [email or web address] Other 02-02-2023 09:40-0400 SaO2% (BldA) [Mass fraction] 98 % Mabel Sapp Other [email or web address] Other 10-23-2022 19:05-0400 Body height 157.48 cm Mabel Sapp Other [email or web address] Other 10-23-2022 19:05-0400 Body mass index (BMI) [Ratio] 27.43 kg/m2 Mabel Sapp Other [email or web address] Other 10-23-2022 19:05-0400 Body temperature 98.3 [degF] Mabel Sapp Other [email or web address] Other 10-23-2022 19:05-0400 Body weight 68.04 kg Mabel Sapp Other [email or web address] Other 10-23-2022 19:05-0400 Respiratory rate 18 /min Mabel Sapp Other [email or web address] Other 10-23-2022 19:05-0400 SaO2% (BldA) [Mass fraction] 99 % Mabel Sapp Other [email or web address] Other 12-23-2021 12:10-0400 Body height 157.48 cm Bridgett Vince Other [email or web address] Other 12-23-2021 12:10-0400 Body mass index (BMI) [Ratio] 27.07 kg/m2 Bridgett Clarke Other [email or web address] Other 12-23-2021 12:10-0400 Body temperature 98.1 [degF] Bridgett Clarke Other [email or web address] Other 12-23-2021 12:10-0400 Body weight 67.13 kg Bridgett Clarke Other [email or web address] Other 12-23-2021 12:10-0400 Respiratory rate 16 /min Bridgett Clarke Other [email or web address] Other 12-23-2021 12:10-0400 SaO2% (BldA) [Mass fraction] 98 % Bridgett Clarke Other [email or web address] Other Encounters Encounter Date Encounter Type Care Provider Facility Start: 12-08-2024 End: 12-08-2024 ambulatory [facility] Work Phone: Start: 12-08-2024 End: 12-08-2024 Patient encounter procedure [facility] Work Phone: Start: 11-28-2024 End: 11-28-2024 ambulatory [facility] Work Phone: Start: 11-28-2024 End: 11-28-2024 Patient encounter procedure [facility] Work Phone: Start: 11-21-2024 End: 11-21-2024 Bamboo flowsheet Yao Brooks MD Work Phone: [facility] Start: 11-21-2024 End: 11-21-2024 Bamboo flowsheet Yao Brooks MD Work Phone: [facility] Start: 11-21-2024 End: 11-21-2024 Office outpatient visit 15 minutes Yao Brooks MD Work Phone: [facility] Comment on above: Euthyroid sick syndr ome (Primary Dx); Chronic fatigue; Overweight (BMI 25.0-29.9) Start: 11-21-2024 End: 11-21-2024 ambulatory YAO BROOKS Not Available Start: 10-17-2024 End: 10-17-2024 Telephone encounter Nirmala Monroe [facility] General Surgery Start: 10-11-2024 Non-patient / Non-visit [facility] Work Phone: Start: 10-10-2024 End: 10-10-2024 Evaluation and management of inpatient DARLING BRIONES [facility] Start: 10-04-2024 End: 10-04-2024 ambulatory [facility] Phone Call Provider 1 [facility] - Pre Admit Start: 10-04-2024 End: 10-04-2024 ambulatory HAYLIE MENDEZ [facility] Start: 09-29-2024 End: 09-29-2024 Office outpatient new 30 minutes Caity Bunch ELECT[employer] LOCOMOTIVE CRANE OPERATOR-PUBLIC SERVICE REPRESENTATIVE [facility] Comment on above: Left lower quadrant pain (Primary Dx); Altered bowel habits Start: 09-29-2024 End: 09-29-2024 ambulatory CAITY Jean Paul BUN[facility] Start: 09-12-2024 End: 09-12-2024 Bamboo flowsheet Ebony Jayy DO Work Phone: [facility] Start: 09-12-2024 End: 09-12-2024 Bamboo flowsheet Ebony Jayy DO Work Phone: [facility] Start: 09-12-2024 End: 09-12-2024 Clinisync Result Encounter Ebony Jayy DO Work Phone: [facility] Unsolicited Start: 09-12-2024 End: 09-12-2024 Office outpatient new 20 minutes Ebony Jayy DO Work Phone: [facility] Comment on above: Left ovarian cyst; Left lower quadrant abdominal pain; Diarrhea, unspecified type; Dark stools; Diverticulitis Start: 09-12-2024 End: 09-12-2024 ambulatory EBONY JAYY Not Available Start: 08-11-2024 End: 08-11-2024 ambulatory [facility] Work Phone: Start: 08-11-2024 End: 08-11-2024 Patient encounter procedure [facility] Work Phone: Start: 05-30-2024 End: 05-30-2024 Bamboo flowsheet Yao Brooks MD Work Phone: [facility] Start: 05-30-2024 End: 05-30-2024 Bamboo flowsheet Yao Brooks MD Work Phone: [facility] Start: 05-30-2024 End: 05-30-2024 Office outpatient visit 25 minutes Yao Brooks MD Work Phone: [facility] Comment on above: Chronic fatigue (Zainab janes Dx); Euthyroid sick syndrome; Adrenal cortex hypofunction (CMS/HCC); Sleep dysfunction with arousal disturbance; Overweight (BMI 25.0-29.9) Start: 05-30-2024 End: 05-30-2024 ambulatory YAO BROOKS Not Available Start: 04-27-2024 End: 04-27-2024 ambulatory [facility] Work Phone: Start: 04-27-2024 End: 04-27-2024 Patient encounter procedure [facility] Work Phone: Start: 12-01-2023 End: 12-01-2023 ambulatory YAO BROOKS Not Available Start: 11-18-2023 End: 11-18-2023 ambulatory [facility] Work Phone: Start: 11-18-2023 End: 11-18-2023 Patient encounter procedure [facility] Work Phone: Start: 10-27-2023 End: 10-27-2023 ambulatory [facility] [place] Work Phone: Start: 10-27-2023 End: 10-27-2023 Patient encounter procedure [facility] Work Phone: Start: 02-04-2023 End: 02-04-2023 ambulatory Haylie Mendez Other [email or web address] Other Start: 02-04-2023 Office outpatient vi sit 15 minutes Haylie Mendez [facility] Start: 02-02-2023 End: 02-02-2023 ambulatory Mabel Sapp Other [email or web address] Other Start: 02-02-2023 Office outpatient vi sit 25 minutes Mabel Sapp [facility] Start: 10-23-2022 End: 10-23-2022 ambulatory Mabel Sapp Other [email or web address] Other Start: 10-23-2022 Office outpatient vi sit 15 minutes Mabel Sapp [facility] Start: 12-23-2021 End: 12-23-2021 ambulatory Bridgett Clarke Other [email or web address] Other Start: 12-23-2021 Office outpatient vi sit 15 minutes Bridgettnestor Clarke [facility] Start: 03-11-2021 End: 03-12-[address] HAYLIE MENDEZ Facility:[facility] Start: 02-28-2021 End: 02-28-[address] HAYLIE MENDEZ Facility:[facility] Start: 01-31-2021 End: 02-01-[address] HAYLIE MENDEZ Facility:[facility] Procedures Date Procedure Procedure Detail Performing Clinician Start: 09-12-2024 US PELVIS W/ TRANSVAGINAL Ebony Jayy DO Work Phone: Start: 09-12-2024 Urnls dip stick/tabl et rgnt non-auto w/o micrscp Ebony Jayy DO Work Phone: Start: 04-27-2024 Quick Strep (POC) Start: 11-18-2023 Quick Strep (POC) Plan of Treatment Date Care Activity Detail Author Start: 10-10-2025 Adult BMI Screening Adult BMI Screen ing [facility] Start: 10-10-2025 Tobacco Screening Tobacco Screening [facility] Start: 10-04-2025 Adult BMI Screening Adult BMI Screen ing [facility] Start: 10-04-2025 Tobacco Screening Tobacco Screening [facility] Start: 09-29-2025 Adult BMI Screening Adult BMI Screen ing [facility] Start: 09-29-2025 Tobacco Screening Tobacco Screening [facility] Start: 05-23-2025 End: 11-21-2025 T3, reverse T3, reverse Lab Routine Euthyroid sick syndrome Chronic fatigue Expected: 05/23/2025 (Approximate), Expires: 11/21/2025 [facility] Comment on above: Expected: 05/23/2025 (Approximate), Expires: 11/21/2025 Start: 05-23-2025 End: 11-21-2025 Thyrotropin [Units/volume] in Serum or Plasma TSH Lab Routine Euthyroid sick syndrome Chronic fatigue Expected: 05/23/2025 (Approximate), Expires: 11/21/2025 [facility] Comment on above: Expected: 05/23/2025 (Approximate), Expires: 11/21/2025 Start: 05-23-2025 End: 11-21-2025 Thyroxine (T4) free [Mass/volume] in Serum or Plasma T4, free Lab Routine Euthyroid sick syndrome Chronic fatigue Expected: 05/23/2025 (Approximate), Expires: 11/21/2025 [facility] Comment on above: Expected: 05/23/2025 (Approximate), Expires: 11/21/2025 Start: 05-23-2025 End: 11-21-2025 Triiodothyronine (T3) [Mass/volume] in Serum or Plasma T3 Lab Routine Euthyroid sick syndrome Chronic fatigue Expected: 05/23/2025 (Approximate), Expires: 11/21/2025 [facility] Work Phone: Comment on above: Expected: 05/23/2025 (Approximate), Expires: 11/21/2025 Start: 05-23-2025 End: 11-21-2025 Triiodothyronine (T3) Free [Mass/volume] in Serum or Plasma T3, free Lab Routine Euthyroid sick syndrome Chronic fatigue Expected: 05/23/2025 (Approximate), Expires: 11/21/2025 [facility] Comment on above: Expected: 05/23/2025 (Approximate), Expires: 11/21/2025 Start: 03-27-2025 Influenza vaccination Influenz a Vaccine (Season Ended) [facility] Start: 12-29-2024 End: 12-29-2024 Patient encounter procedure 12/29/2024 9:00 AM EDT Office Visit [facility] [address] [address] Pooja Pena PA [address] [place] [address] [facility] Start: 11-27-2024 End: 05-30-2025 T3, reverse T3, reverse Lab Routine Chronic fatigue Euthyroid sick syndrome Expected: 11/27/2024 (Approximate), Expires: 05/30/2025 [facility] Comment on above: Expected: 11/27/2024 (Approximate), Expires: 05/30/2025 Start: 11-27-2024 End: 05-30-2025 Thyrotropin [Units/volume] in Serum or Plasma TSH Lab Routine Chronic fatigue Euthyroid sick syndrome Expected: 11/27/2024 (Approximate), Expires: 05/30/2025 [facility] Comment on above: Expected: 11/27/2024 (Approximate), Expires: 05/30/2025 Start: 11-27-2024 End: 05-30-2025 Thyroxine (T4) free [Mass/volume] in Serum or Plasma T4, free Lab Routine Chronic fatigue Euthyroid sick syndrome Expected: 11/27/2024 (Approximate), Expires: 05/30/2025 [facility] Comment on above: Expected: 11/27/2024 (Approximate), Expires: 05/30/2025 Start: 11-27-2024 End: 05-30-2025 Triiodothyronine (T3) [Mass/volume] in Serum or Plasma T3 Lab Routine Chronic fatigue Euthyroid sick syndrome Expected: 11/27/2024 (Approximate), Expires: 05/30/2025 [facility] Work Phone: Comment on above: Expected: 11/27/2024 (Approximate), Expires: 05/30/2025 Start: 11-27-2024 End: 05-30-2025 Triiodothyronine (T3) Free [Mass/volume] in Serum or Plasma T3, free Lab Routine Chronic fatigue Euthyroid sick syndrome Expected: 11/27/2024 (Approximate), Expires: 05/30/2025 [facility] Comment on above: Expected: 11/27/2024 (Approximate), Expires: 05/30/2025 Start: 11-24-2024 End: 11-24-2024 Patient encounter procedure [facility] Start: 11-21-2024 End: 11-21-2024 Patient encounter procedure 11/21/2024 8:00 AM EDT Office Visit [facility] [address] [place] [address] Yao Brooks MD [address] [facility] [address] [place] [address] Euthyroid sick syndrome; Overweight (BMI 25.0-29.9) [facility] Comment on above: Euthyroid sick syndr ome; Overweight (BMI 25.0-29.9) Start: 10-10-2024 End: 10-10-2024 Admission to same day surgery center 10/10/2024 8:00 AM EDT - 10/10/2024 8:30 AM EDT Surgery [facility] Surgery [address] [place] [id number] Darling Briones, [address] [place] [address] [id number] COLONOSCOPY DIAGNOSTIC / SCREENING [92387 (CPT )] [facility] Surgery Comment on above: COLONOSCOPY DIAGNOST IC / SCREENING [28678 (CPT )] Start: 10-10-2024 End: 10-10-2024 Colonoscopy flx dx w/collj spec when pfrmd COLONOSCOPY DIAGNOSTIC / SCREENING left lower quadrant pain 10/10/2024 8:00 AM EDT [facility] Start: 10-10-2024 Subsequent hospital visit by physician 10/10/2024 8:00 AM EDT Hospital Encounter [facility] - Surgery [address] [place] [id number] Darling Briones, DO [address] [place] [address] [facility] Start: 10-04-2024 End: 10-04-2024 ambulatory 10/04/2024 3:40 PM EDT Support Visit [facility] - Pre Admit [address] [place] [id number] [facility] - Pre Admit Start: 09-12-2024 End: 09-12-2025 US Pelvis US Pelvis w/ TV Imaging Routine Left ovarian cyst Expected: 09/12/2024 (Approximate), Expires: 09/12/2025 [facility] Work Phone: Comment on above: Expected: 09/12/2024 (Approximate), Expires: 09/12/2025 Start: 09-12-2024 End: 09-12-2024 Patient encounter procedure 09/12/2024 9:20 AM EST Office Visit [facility] [address] [place] [address] Ebony Hope DO [address] [place] [address] Arrived [facility] Comment on above: Arrived Start: 05-30-2024 End: 05-30-2024 Patient encounter procedure 05/30/2024 8:00 AM EST Office Visit [facility] [address] [place] [address] [place] [address] Yao Brooks MD [address] [facility] [address] [place] [address] (Fax) ESS (euthyroid sick syndrome); Chronic fatigue; Overweight (BMI 25.0-29.9) [facility] Comment on above: ESS (euthyroid sick syndrome); Chronic fatigue; Overweight (BMI 25.0-29.9) Start: 03-27-2024 Influenza vaccination [facility] Start: 02-07-2022 DTaP,Tdap and Td Vac cines (2 - Tdap) DTaP,Tdap and Td Vaccines (2 - Tdap) [facility] Start: 2020 Screening for malign ant neoplasm of breast Mammogram [facility] Start: 2010 Screening for malign ant neoplasm of cervix [facility] Start: 2001 Screening for malign ant neoplasm of cervix Pap Smear [facility] Start: 1998 Adult BMI Follow Up Plan Adult BMI Follow Up Plan [facility] Start: 1992 Depression Screening Depression Scre ening [facility] End: 09-29-2025 Colonoscopy Colonoscopy GI Routine Left lower quadrant pain 1 Occurrences starting 09/29/2024 until 09/29/20[facility] Comment on above: 1 Occurrences starti ng 09/29/2024 until 09/29/2025 Immunizations Immunization Date Immunization Notes Care Provider Nasreen bishop 02-08-2012 diphtheria, tetanus toxoids and acellular pertussis vaccine Bridgett Clarke Other [email or web address] Other 02-08-2012 diphtheria, tetanus toxoids and acellular pertussis vaccine, unspecified formulation [facility] Payers Date Payer Category Payer [employer] - O [employer] [id number] 2021 [employer] Blue [employer] BCBS [id number] 2021 Unknown [id number] 1980 Unknown [id number] [id number]. 2.59 1980 Unknown [id number] [id number]. 2.59 1980 Unknown [id number] [id number]. 2. 1980 Unknown [id number] [id number]. 2.1285 1980 Unknown [id number] [id number]. 2.1285 1980 Unknown [id number] [id number]. 2.128 1980 Unknown [id number] [id number]. 2.1258 1980 Unknown [id number] [id number]. 2.1258 1980 Unknown [id number]. 2.1258 1980 Unknown [id number] 2.1259 1959 Unknown [id number] Social History Date Type Detail Facility Unknown if ever smoked [email or web address] Other Start: 05-27-2024 End: 11-21-2024 Sex Assigned At [facility] Start: 10-27-2023 End: 10-27-2023 Tobacco smoking status [facility] Never smoked tobacco (finding) [facility] Start: 1980 Sex Assigned At Female [facility] Start: 12-01-2023 End: 10-10-2024 Tobacco smoking status [facility] Ex-smoker [facility] Start: 07-27-1999 End: 07-27-2001 History of tobacco use Current smoker [facility] Start: 07-27-1999 End: 07-27-2001 History of tobacco use Cigarette Smoker [facility] Start: 12-01-2023 End: 10-10-2024 Tobacco use and exposure Smokeless tobacco non-user [facility] Start: 12-01-2023 End: 11-21-2024 Alcoholic beverage intake Current drinker of alcohol (finding) [facility] Start: 12-01-2023 End: 05-27-2024 Alcoholic beverage intake [facility] How often do you nee d to have someone help you when you read instructions, pamphlets, or other written material from your doctor or pharmacy [SILS] Never [facility] Do you belong to any clubs or organizations such as anglican groups, unions, fraternal or athletic groups, or [...] female gender (finding) [facility] Start: 08-11-2024 End: 12-08-2024 Sex Female (finding) [facility] Start: 09-29-2024 End: 10-11-2024 Alcoholic beverage intake Ex-drinker (finding) [facility] Start: 09-29-2024 Alcohol Comment socially [facility] Start: 09-20-2024 Sexual orientation Heterosexual (finding) [facility] Clinical Notes 11-24-2013 to 11-28-2024 Note Date & Type Note Facility 11-28-2024 Evaluation note Diagnosis Onset Date Resolution Viral URI with cough acute November 28, 2024 5:44pm [facility] Work Phone: 1([phone] 299-145004-28-2025 History of Present illness Narrative* Yao Brooks MD - 11/21/2024 8:00 AM EDT Images from the original note were not included. Patient ID: Keira Juares is a 43 y.o. female who presents for: Thyroid: Pt here today to review his/hers thyroid labs and any medication changes needed. Fatigue: Present, depends on the day but worsened Weight Gain: Absent Inability to lose weight: Present, Unchanged Hair Changes: Absent He/She is following the thyroid diet: Good He/She are taking medications as directed: Good He/She are exercising at least 3 days out of the week for 30 minutes or more: Poor Review of Systems Constitutional: Positive for fatigue. Negative for appetite change. HENT: Negative for trouble swallowing and voice change. Cardiovascular: Negative for palpitations. Musculoskeletal: Positive for arthralgias. Negative for myalgias. Psychiatric/Behavioral: Negative for sleep disturbance. The patient is not nervous/anxious. Endocrine: Negative for cold intolerance and heat intolerance. Calculated THY Ratio: 9.5 Objective The patient is pleasant and in no acute distress The patient has good eye contact and clear speech Visit Vitals Ht 5' 3 Wt 157 lb BMI 27.81 kg/m OB Status Having periods Smoking Status Former BSA 1.78 m Allergies Allergen Reactions Melatonin Other nightmare Penicillins Rash Other Reaction(s): Unknown Current Outpatient Medications on File Prior to Visit Medication Sig Dispense Refill ADRENAPLEX Take 1 capsule by mouth Daily SUMAtriptan (Imitrex) 50 MG tablet Take 50 mg by mouth if needed for migraine. [DISCONTINUED] liothyronine (Cytomel) 5 MCG tablet Take 1.5 tablet in AM and 1 tablet in PM on an empty stomach. SOLOMON; Sigma or Greenstone brands only 225 tablet 1 No current facility-administered medications on file prior to visit. 1. 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 The patient has been instructed to follow up and bring a diet and exercise log, obtain the unique laboratory tests ordered, and the importance of follow up and compliance. The patient was given a chance to ask questions today and all questions were answered. The patient is to contact us if any other questions arise or if any problems occur. In prescribing a renewal to their current medication, consideration of the following encompasses moderate decision making; the current prescriptions and supplements, the current allergies and medication intolerances, current medical conditions, and potential drug interactions. Any changes to risks, benefits, and reason for renewing their current medication due to the above were discussed. The patient was given a chance to ask questions today and all questions were answered. The patient is to contact us if any other questions arise or if any problems occur. (Utilizing the original 1994/1996 guidelines or the 2020 office/outpatient code guidelines for selecting the level of E/M service, In both sets of guidelines, prescription drug management appears in the moderate medical decision making (MDM) row. Neither the original guidelines nor the new guidelines state that a new prescription or change is needed in order to credit prescription drug management) - liothyronine (Cytomel) 5 MCG tablet; Take 1.5 tablet in AM and 1 tablet in PM on an empty stomach. SOLOMON; Sigma or Greenstone brands only Dispense: 225 tablet; Refill: 1 - T3; Future - T3, reverse; Future - T3, free; Future - T4, free; Future - TSH; Future - T3 - T3, reverse - T3, free - T4, free - TSH 2. Chronic fatigue We did talk and she specifically has a work stressor that is probably the focus of the lot of her stress. We talked about multiple options. Chronic problem, stable, complex in nature with moderate decision making. I discussed with the patient and/or their cordage sales representative, their fatigue issues. We discussed how this is improved significantly. We discussed that the patient will almost certainly need to continue to make lifestyle changes including diet, sleep, exercise, and stress management as appropriate. We discussed how this is almost always a multifactorial problem. We further discussed how we will continue [...] free - T4, free - TSH 3. Overweight (BMI 25.0-29.9) Encouraged lifestyle changes as mentioned documented in this encounterSaint John's [id number] Miscellaneous Notes* Telephone Encounter - Nirmala Monroe CMA - 10/17/2024 9:41 AM EDT ----- Message from Dr. Darling Briones, sent at 10/17/2024 7:18 AM EDT ----- Please call patient and let her know that she had a biopsy which was basically normal showing mild congestion but nothing to worry about. Would recommend follow up colonoscopy in 10 years unless she has problems. Thanks, Dr. Hernandez * Telephone Encounter - Nirmala Monroe CMA - 10/17/2024 9:41 AM EDT Spoke with patient regarding pathology results. Patient verbally understood with and questions wereanswered. Recall put in chart. documented in this encounterLouis [facility] [place] [id number] Telephone encounter Note* Telephone Encounter - Nirmala Monroe CMA - 10/17/2024 9:41 AM EDT ----- Message from Dr. Darling Briones, sent at 10/17/2024 7:18 AM EDT ----- Please call patient and let her know that she had a biopsy which was basically normal showing mild congestion but nothing to worry about. Would recommend follow up colonoscopy in 10 years unless she has problems. Thanks, Dr. Hernandez [facility] [place] [id number] Telephone encounter Note* Telephone Encounter - Nirmala Monroe CMA - 10/17/2024 9:41 AM EDT Spoke with patient regarding pathology results. Patient verbally understood with and questions wereanswered. Recall put in chart. [facility] [place] [id number] Miscellaneous Notes* Perioperative Nursing Note - Kamryn Jeong RN - 10/04/2024 3:40 PM EDT Preoperative Education Checklist- General Surgery date: 10/10/24 Surgery time: 0800 Arrival time: 0610 1. Bring a photo ID and your insurance card with you the day of surgery. You will check in at the main lobby of the [facility]- registration desk is straight ahead as soon as you walk in. Tell them you are here for surgery. 2. If you have a Living Will/Durable Power of Lace Winder for Health Care that is not on file here, please bring a copy the day of surgery. 3. Please shower/bathe the night before surgery with the provided soap or wipes. Do not shower the morning of surgery- you will do use wipes when you arrive here at the hospital before getting into your surgical gown. Do not shave the area of your procedure for 2 days prior to your surgery. 4. NO powder, lotion, perfume/cologne, aftershave, make-up, deodorant, or hair products after you have bathed. 5. NO nail iraqi/acrylic on at least one finger. If you are having a hand, wrist or foot surgery then all nail iraqi and artificial/acrylic nails must be removed from that hand or foot. 6. Avoid ALL Aspirin and non-steroidal anti-inflammatory drugs and certain vitamins (Ibuprofen, Advil, Aleve, Excedrin, Meloxicam, Celebrex, fish/krill oil, etc.) for 7 days prior to surgery as instructed by your surgeon and/or your prescribing doctor. Tylenol IS ALLOWED. If you are on Ticlid, Xarelto, Eliquis, Pradaxa, Plavix or Coumadin, please check with your prescribing doctor for instructions for when to stop them. 7. If you use an inhaler, continue to use it routinely. 8. Nothing to eat or drink (not even water, gum, mints, or hard candy!) AFTER midnight prior to your surgery. 9. Take only medications that you are instructed to on the morning of surgery with a TINY SIP OF WATER. 10. Choose a responsible adult that will be able to drive you home when you are discharged from your hospital stay for your surgery and can stay with you in your home for 24 hours after your procedure. You must NOT drive any vehicle or operate any machinery for 24 hours after surgery. 11. When you dress for your appointment, please wear loose fitting clothing that is appropriate to accommodate your surgical area procedure. BRING WITH YOU ANY DEVICES YOU MAY NEED: BELL hose, ice machine, sling/swath, brace or special shoe, oversized zip-up or button up shirt, CPAP machine if staying overnight. 12. Do NOT wear jewelry, watches, or any piercings or metal for surgery- leave these valuables and money at home. 13. Do NOT wear contact lenses for surgery- glasses are okay if needed. 14. The anesthesiologist will talk with you the day of surgery and will ask you to sign a Consent Form. 15. Refrain from smoking or any type of tobacco use for at least 8 hours and marijuana for 24 hoursprior to arrival for your surgery. 16. If a GREEN BLOOD band is given to you, please bring it with you for the day of surgery. 17. Notify your surgeon if you develop any illness before your surgery. 18. If you are staying overnight, please DO NOT BRING your home medications with you. 19. If you have any questions prior to surgery, please call the Preadmission Testing office at [phone], Mon.-Fri. 7 a.m.-3 p.m. Leave a voicemail if needed. Pre-Surgery Instructions: Medication Instructions ibuprofen (MOTRIN) 400 mg tablet Stop taking 1 week prior to procedure liothyronine (CYTOMEL) 5 MCG tablet Take morning of procedure NON FORMULARY Stop taking 0 days prior to procedure NON FORMULARY Stop taking 0 days prior to procedure SUMAtriptan (IMITREX) 50 mg tablet Stop taking 0 days prior to procedure documented in this encounterTrinity Health System East [email or web address] Veterans Affairs Medical [id number] Nurse Note* Perioperative Nursing Note - Kamryn Jeong RN - 10/04/2024 3:40 PM EDT Preoperative Education Checklist- General Surgery date: 10/10/24 Surgery time: 0800 Arrival time: 0610 1. Bring a photo ID and your insurance card with you the day of surgery. You will check in at the main lobby of the [facility]- registration desk is straight ahead as soon as you walk in. Tell them you are here for surgery. 2. If you have a Living Will/Durable Power of Lace Winder for Health Care that is not on file here, please bring a copy the day of surgery. 3. Please shower/bathe the night before surgery with the provided soap or wipes. Do not shower the morning of surgery- you will do use wipes when you arrive here at the hospital before getting into your surgical gown. Do not shave the area of your procedure for 2 days prior to your surgery. 4. NO powder, lotion, perfume/cologne, aftershave, make-up, deodorant, or hair products after you have bathed. 5. NO nail iraqi/acrylic on at least one finger. If you are having a hand, wrist or foot surgery then all nail iraqi and artificial/acrylic nails must be removed from that hand or foot. 6. Avoid ALL Aspirin and non-steroidal anti-inflammatory drugs and certain vitamins (Ibuprofen, Advil, Aleve, Excedrin, Meloxicam, Celebrex, fish/krill oil, etc.) for 7 days prior to surgery as instructed by your surgeon and/or your prescribing doctor. Tylenol IS ALLOWED. If you are on Ticlid, Xarelto, Eliquis, Pradaxa, Plavix or Coumadin, please check with your prescribing doctor for instructions for when to stop them. 7. If you use an inhaler, continue to use it routinely. 8. Nothing to eat or drink (not even water, gum, mints, or hard candy!) AFTER midnight prior to your surgery. 9. Take only medications that you are instructed to on the morning of surgery with a TINY SIP OF WATER. 10. Choose a responsible adult that will be able to drive you home when you are discharged from your hospital stay for your surgery and can stay with you in your home for 24 hours after your procedure. You must NOT drive any vehicle or operate any machinery for 24 hours after surgery. 11. When you dress for your appointment, please wear loose fitting clothing that is appropriate to accommodate your surgical area procedure. BRING WITH YOU ANY DEVICES YOU MAY NEED: BELL hose, ice machine, sling/swath, brace or special shoe, oversized zip-up or button up shirt, CPAP machine if staying overnight. 12. Do NOT wear jewelry, watches, or any piercings or metal for surgery- leave these valuables and money at home. 13. Do NOT wear contact lenses for surgery- glasses are okay if needed. 14. The anesthesiologist will talk with you the day of surgery and will ask you to sign a Consent Form. 15. Refrain from smoking or any type of tobacco use for at least 8 hours and marijuana for 24 hoursprior to arrival for your surgery. 16. If a GREEN BLOOD band is given to you, please bring it with you for the day of surgery. 17. Notify your surgeon if you develop any illness before your surgery. 18. If you are staying overnight, please DO NOT BRING your home medications with you. 19. If you have any questions prior to surgery, please call the Preadmission Testing office at [phone], Mon.-Fri. 7 a.m.-3 p.m. Leave a voicemail if needed. Pre-Surgery Instructions: Medication Instructions ibuprofen (MOTRIN) 400 mg tablet Stop taking 1 week prior to procedure liothyronine (CYTOMEL) 5 MCG tablet Take morning of procedure NON FORMULARY Stop taking 0 days prior to procedure NON FORMULARY Stop taking 0 days prior to procedure SUMAtriptan (IMITREX) 50 mg tablet Stop taking 0 days prior to procedure [facility]03-06-2025 History of Present illness Narrative* Caity Bunch, ELECTRIC LOCOMOTIVE CRANE OPERATOR-PUBLIC SERVICE REPRESENTATIVE - 09/29/2024 9:00 AM EST Images from the original note were not included. Chief Complaint: LLQ pain History of Present Illness Keira Juares is a 43 y.o. female who presents to the office for abdominal pain. The pain is in her lower abdomen, mainly around her umbilicus and left lower quadrant. She states she had a CT scan performed that showed a left ovarian cyst and ? diverticulosis. She also reports altered bowel habits between constipation and diarrhea. She denies any rectal bleeding. She states she gets relief from the pain after she passes gas or has a bowel movement. She did see her OBGYN for the cyst and they recommended she proceed with colonoscopy as well. There is no immediate family history of colon cancer. Review of Systems Constitutional: Negative for fever and unexpected weight change. HENT: Negative for trouble swallowing. Respiratory: Negative for shortness of breath. Cardiovascular: Negative for chest pain. Gastrointestinal: Positive for abdominal pain, diarrhea and constipation. Negative for nausea, vomiting and blood in stool. Genitourinary: Negative for dysuria and difficulty urinating. Musculoskeletal: Negative for gait problem. Skin: Negative for rash and wound. Neurological: Negative for dizziness, weakness and light-headedness. Hematological: Does not bruise/bleed easily. Psychiatric/Behavioral: Negative for confusion. Past Medical History: Diagnosis Date Allergic Disease of thyroid gland Eczema Migraine Varicella Past Surgical History: Procedure Laterality Date EYE SURGERY Allergies Allergen Reactions Melatonin Other (See Comments) nightmare Penicillins Rash Other Reaction(s): Unknown Current Outpatient Medications: ibuprofen (MOTRIN) 400 mg tablet, Take 1 tablet (400 mg total) by mouth every 6 (six) hours as needed for pain., Disp: , Rfl: liothyronine (CYTOMEL) 5 MCG tablet, Take 1 tablet (5 mcg total) by mouth in the morning and 1 tablet (5 mcg total) before bedtime., Disp: , Rfl: NON FORMULARY, Take 1 each by mouth daily as needed. Med Name: Adrena Plex supplement, Disp: , Rfl: NON FORMULARY, Take 1 each by mouth in the morning. Med Name: Elderberry gummies., Disp: , Rfl: SUMAtriptan (IMITREX) 50 mg tablet, Take 1 tablet (50 mg total) by mouth once as needed for migraine. May repeat in 2 hours if unresolved. Do not exceed 200 mg in 24 hours., Disp: , Rfl: peg 3350-sod sulf,[id number]-hxr 178.7-7.3-0.5 gram recon soln, Take 1 kit by mouth once daily for 1 dose. Please see instructional sheet given by physicians office., Disp: 1 each, Rfl: 0 Social History Socioeconomic History Marital status: Spouse name: Not on file Number of children: Not on file Years of education: Not on file Highest education level: Not on file Occupational History Not on file Tobacco Use Smoking status: Former Types: Cigarettes Smokeless tobacco: Never Vaping Use Vaping status: Never Used Substance and Sexual Activity Alcohol use: Not Currently Alcohol/week: 2.0 standard drinks of alcohol Types: 1 Glasses of wine, 1 Drinks containing 0.5 oz of alcohol per week Comment: socially Drug use: Never Sexual activity: Yes Partners: Male control/protection: None Other Topics Concern Not on file Social History Narrative Not on file Social Drivers of Health Financial Resource Strain: Medium Risk (05/27/2024) [facility] Overall Financial Resource Strain (CARDIA) Difficulty of Paying Living Expenses: Somewhat hard Food Insecurity: Food Insecurity Present (05/27/2024) Received from [facility] Hunger Vital Sign Worried About Running Out of Food in the Last Year: Never true Ran Out of Food in the Last Year: Sometimes true Transportation Needs: No Transportation Needs (05/27/2024) Received from [facility] PRAPARE - Transportation Lack of Transportation (Medical): No Lack of Transportation (Non-Medical): No Physical Activity: Insufficiently Active (05/27/2024) Received from [facility] Exercise Vital Sign Days of Exercise per Week: 2 days Minutes of Exercise per Session: 20 min Stress: Stress Concern Present (05/27/2024) Received from [facility] [employer] [place] [employer] - Occupational Stress Questionnaire Feeling of Stress : To some extent Social Connections: Moderately Integrated (05/27/2024) Received from [facility] Social Connection and Isolation Panel [NHANES] Frequency of Communication with Friends and Family: Three times a week Frequency of Social Gatherings with Friends and Family: Once a week Attends Religion Services: Never Active Member of Clubs or Organizations: Yes Attends Club or Organization Meetings: Never Marital Status: Interpersonal Safety: Not on file Housing Instability: Unknown (05/27/2024) Received from [facility] Housing Stability Vital Sign Unable to Pay for Housing in the Last Year: No Number of Times Moved in the Last Year: Not on file Homeless in the Last Year: No Family History Problem Relation Age of Onset Diabetes Father Border Line Objective Physical Exam Constitutional: General: She is not in acute distress. Appearance: Normal appearance. She is not ill-appearing. HENT: Head: Normocephalic and atraumatic. Mouth/Throat: Mouth: Mucous membranes are moist. Eyes: Pupils: Pupils are equal, round, and reactive to light. Cardiovascular: Rate and Rhythm: Normal rate and regular rhythm. Pulmonary: Effort: Pulmonary effort is normal. No respiratory distress. Abdominal: General: There is no distension. Tenderness: There is abdominal tenderness. There is no guarding. Comments: Mild tenderness LLQ Musculoskeletal: General: Normal range of motion. Skin: General: Skin is warm and dry. Neurological: Mental Status: She is alert and oriented to person, place, and time. Mental status is at baseline. Vital Signs: Blood pressure 133/87, pulse 77, height 161.3 cm (5' 3.5 ), weight 70.6 kg (155 lb 9.6oz). Respiratory Source: No data recorded Admission Weight: Weight: 70.6 kg (155 lb 9.6 oz) Labs No results found for: WBC , HGB , HCT , MCV , PLT No results found for: GLU , CALCIUM , NA , K , CO2 , CL , BUN , CREATININE No results found for: AMYLASE No results found for: LIPASE No results found for: ALT , AST , GGT , ALKPHOS , LABBILI No results found for: INR , PROTIME Assessment LLQ pain Altered bowel habits Plan Colonoscopy with possible biopsy and/or polypectomy. Risks, benefits, and alternatives discussed with patient. Educated on bowel evacuation preparation. Patient verbalizes understanding and wishes toproceed. Evaluation included: Preparing to see the patient (e.g., review of tests) Obtaining and/or reviewing separately obtained history Performing a medically appropriate examination and/or evaluation Counseling and educating the patient/family/caregiver Referring and communicating with other health ambulatory care coordinator Left lower quadrant pain [R10.32] JUNIE BUSTILLO [facility] [place] This note was created with the assistance of a speech recognition program. While intending to generate a timely document that accurately reflects the content of the visit, no guarantee can be provided that every grammatical or spelling mistake has been or will be identified or corrected. Thank you for your understanding. JUNIE Bustillo 09/29/24 1012 documented in this encounterCleveland [facility] History of Present illness Narrative* Petty García LPN - 09/12/2024 9:20 AM EST Reason for Appointment: Patient ID: Keira Juares is a 43 y.o. female who presents for Left Ovarian Cyst Patient presents today for Consult appointment. MEDICATIONS Current Outpatient Medications Medication Instructions ADRENAPLEX [...] Date Allergies History of PCOS Dr Guerrero, [facility] Obesity Social History Tobacco Use Smoking status: [...] SYSTEMS Review of Systems: Review of Systems All other systems reviewed and are negative. OBJECTIVE Objective: Physical Exam Constitutional: Appearance: Normal appearance. She is well-developed. Cardiovascular: Rate and Rhythm: Normal rate and regular rhythm. Pulmonary: Effort: Pulmonary effort is normal. Breath sounds: Normal breath sounds. Abdominal: General: Bowel sounds are normal. There is no distension. Palpations: Abdomen is soft. Tenderness: There is no abdominal tenderness. There is no guarding or rebound. Musculoskeletal: General: No swelling. Normal range of motion. Right lower leg: No edema. Left lower leg: No edema. Neurological: Mental Status: She is alert and oriented to person, place, and time. Skin: General: Skin is warm and dry. Psychiatric: Mood and Affect: Mood normal. Behavior: Behavior normal. Vitals and nursing note reviewed. Exam conducted with a retail sales merchandiser development present. Vitals: Estimated body mass index is 27.81 kg/m as calculated from the following: Height as of 24: 5' 3 . Weight as of this encounter: 157 lb. BP: 120/90 No LMP recorded. ASSESSMENT & PLAN ICD-10-CM 1. Left ovarian cyst N83.202 US Pelvis w/ TV POCT urinalysis dipstick manually resulted 2. Left lower quadrant abdominal pain R10.32 3. Diarrhea, unspecified type R19.7 4. Dark stools R19.5 5. Diverticulitis K57.92 Patient presents today to follow up from CT scan, which showed ovarian cyst. Discussed patient obtaining ultrasound to confirm ovarian cyst. Patient voiced that she has been having LLQ pain, along with change in stool habits and would like to have referral to Dr. Briones for possible colonoscopy. Patient given order for ultrasound to be done and to return to clinic in 4 weeks to review ultrasound. Discussed management via scope and to discuss plan of care. Patient to provide urine sample prior to leaving office today. RTC in 4 weeks. Documented by Petty García LPN on behalf of: Ebony Hope DO documented in this encounterSaint John's [id number] History of Present illness Narrative* Yao Brooks MD - 05/30/2024 8:00 AM EST Images from the original note were not included. Patient ID: Keira Juares is a 43 y.o. female who presents [...] stomach. SOLOMON; Sigma or Greenstone brands only 180tablet 1 SUMAtriptan (Imitrex) 50 MG tablet Take [...] multifactorial problem. We discussed that the patient willalmost certainly need to continue to make lifestyle [...] the patient's current prescriptions and discussed the possibilitiesof medication renewals, adjustments, new medication start, or [...] stomach. SOLOMON; Sigma or Greenstone brands only Dispense: 225 tablet; Refill: 1 [...] night if you have sleep arousal disorder. Huxo-djb-sklzqaz medication includes doxylamine 1-2 tablets, and not most of the other medications which contain Benadryl and can be impairing. We have discussed that any supplements recommended have not undergone review or approval by the FDAand, therefore, have not been documented to be [...] I discussed with the very specifically if shetries the above options and she still can not sleep through the night then she should follow-up with her PCP to try some prescription intervention. 5. Overweight (BMI 25.0-29.9) Lifestyle changes as above documented in this encounterSaint John's [id number] Evaluation note* Encounter Date Diagnosis Assessment Notes Treatment Notes Treatment Clinical Notes Jan, Acute non-recurrent maxillary sinusitis (ICD-10 - J01.00) Presentation consistent [...] understanding and agrees with plan of care. [email or web address] Other 07-10-2023 Evaluation note* Encounter Date Diagnosis [...] B97.89) Jan, Sore throat (ICD-10 - J02.9) [email or web address] Other 03-30-2023 Evaluation note* Encounter Date Diagnosis [...] B97.89) Sep, Sore throat (ICD-10 - J02.9) [email or web address] Other 05-30-2022 Evaluation note* Encounter Date Diagnosis Assessment Notes Treatment Notes Treatment Clinical Notes November, Right otitis media with effusion (ICD-10 - H65.91) Recommend OTC Zyrtec for symptoms. Follow up with PCP if symptoms persists. [email or web address] Other 08-16-2021 NoteHOME SLEEP STUDY Ordering Physician: [...] anxiety or depression. 3. Please correlate clinically.[id number] History general Narrative - Reported* Type Description Date Medical History eczema Surgical History [facility] Surgical History Cyst on Face/Thigh 11/2013 [email or web address] Other 05-01-2014 History general Narrative - Reported* Type Description Date Medical History eczema Medical History Hypothyroidism Surgical History [facility] Surgical History Cyst on Face/Thigh 11/2013 Hospitalization History see above [email or web address] Other 05-01-2014 History general Narrative - Reported* Type Description Date Medical History eczema Medical History Hypothyroidism Medical History Habitual snoring Medical History Apnea Surgical History [facility] Surgical History Cyst on Face/Thigh 11/2013 Hospitalization History see above [email or web address] Other Chitn complaint+Reason for visit Narrative* Chief Complaint Sore throat Reason for Visit Contact with and (domingo spected) exposure to covid-19 Sore throat [facility] Work Phone: Evaluation note* Diagnosis Onset Date Resolution Status Diarrhea acute [facility] Work Phone: Evaluation note* Diagnosis Onset Date Resolution Status Diarrhea acute Bacterial pharyngitis noneac tive Sore throat noneactive [facility] Work Phone: Evaluation note* Diagnosis Onset Date Resolution Status Contact with and (suspected) exposure to covid-19 noneactive Sore throat noneactive [facility] Work Phone: Evaluation note* Diagnosis Chronic fatigue- Primary Other malaise and fatigue 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) Glucocorticoid deficiency Sleep dysfunction with arousal disturbance Overweight (BMI 25.0-29.9) Overweight documented in this encounter [facility] HealthcareEvaluation noteNo assessment [facility] Work Phone: Evaluation note* Diagnosis Left ovarian cyst Other and unspecified ovarian cyst Left lower quadrant abdominal pain Diarrhea, unspecified type Dark stools Nonspecific abnormal finding in stool contents Diverticulitis Diverticulitis of colon (without mention of hemorrhage) documented in this encounter [facility] HealthcareEvaluation note* Diagnosis Left lower quadrant pain- Primary Abdominal pain, left lower quadrant Altered bowel habits [facility] this [facility] Diagnosis Euthyroid sick syndrome- Primary Chronic fatigue Other malaise and fatigue Overweight (BMI 25.0-29.9) Overweight documented in this encounter [facility] HealthcareEvaluation note* Diagnosis Onset Date Resolution Status Admit Date Viral URI with cough acute November 28, 2024 5:44pm [facility] Work Phone: InstructionsNot on filedocumented in this encounter [facility] filedocumented in this encounter [facility] SystemInstructionsNot on filedocumented in [facility] encounter [facility] Summary Purpose Family History No Family History Records FoundNo Family History Records FoundNo Family History Records FoundNo Family History Records [...] around belly button August 11 025 9:18am Chief Complaint Admit Date Amb Documentation October 11, 2024 8:0 6am Cough, Congestion, wheezing, sore throat November 28, 2024 5:44pm Reason for Visit Admit Date Viral URI with cough November 28, 2024 5:44p m Chief Complaint Admit Date Amb Documentation October 11, 2024 8:0 6am Cough, Congestion, wheezing, sore throat November 28, 2024 5:44pm UC follow up, still not feeling better M ay 2024 2:30pm Additional Source Comments INFORMATION SOURCE (unrecogn ized section and content) DATE CREATED AUTHOR 04/09/2021 [facility] DATE CREATED AUTHOR AUTHOR'S ORGANIZ ATION 10/01/2024 [facility] DATE CREATED AUTHOR AUTHOR'S ORGANIZ ATION 10/16/2024 [facility] DATE CREATED AUTHOR AUTHOR'S ORGANIZ ATION 11/21/2024 [facility] EPIC REASON FOR VISIT (unrecogniz ed section and content) Reason Comments Hypothyroidism Reason Comments Left Ovarian Cyst Reason Comments Pain Left lower quadrant pain, change in bowel habits, referred by Dr. Hope Care Teams (unrecognized sec tion and content) Team Status: Active Member Role Status Dates Haylie Mendez MD Primary Care Provider Active Team Status: Active Member Role Status Dates Haylie Mendez MD Primary Care Provider Active Start: October 11, 2024 Kyung Strauss CMA Attending Provider Active Start: October 11, 2024 Team Status: Inactive Member Role Status Dates Haylie Mendez MD Primary Care Provider Active Start: November 28, 2024 End: November 28, 2024 Nirmala Caro APRN Attending Provider Active Start: November 28, 2024 End: November 28, 2024 Team Status: Inactive Member Role Status Dates Haylie Mendez MD Primary Care Provider Active Start: October 27, 2023 End: October 27, 2023 Flora Arnold APRN PLUGGER-C Attending Provider Act milo Start: October 27, [...] April 27, 2024 End: April 27, 2024 Railroad Signal Operator Relationship Specialty Start Date End Date Haylie Mendez MD [address] [place] [phone] PCP - General 05/13/23 Yao Brooks MD [address] [place] [address] PCP - [employer] 09/25/23 Railroad Signal Operator Relationship Specialty Start Date End Date Haylie Mendez MD [address] [place] [address] PCP - General 05/13/23 Yao Brooks MD [address] [place] [address] PCP - [employer] 09/25/23 Team Status: Inactive Member Role Status Dates Haylie Mendez MD Primary Care Provide r, Attending Provider Active Start: August 11, 2024 End: August 11, 2024 Railroad Signal Operator Relationship Specialty Start Date End Date Haylie Mendez MD [address] [place] [address] PCP - General 05/13/23 Yao Brooks MD [address] [place] [address] PCP - [employer] 09/25/23 Railroad Signal Operator Relationship Specialty Start Date End Date Haylie Mendez MD [address] [place], [place] [phone] PCP - General 05/13/23 Yao Brooks MD [address] [place] [address] PCP - [employer] 09/25/23 Railroad Signal Operator Relationship Specialty Start Date End Date Haylie Mendez MD [address] [place], [place] [phone] PCP - General 05/13/23 Yao Brooks MD [address] [place] [address] PCP - [employer] 09/25/23 Railroad Signal Operator Relationship Specialty Start Date End Date Haylie Mendez MD [address] [place], [place] [id number] PCP - General Family Medicine 09/19/24 Railroad Signal Operator Relationship Specialty Start Date End Date Haylie Mendez MD [address] [place] [address] PCP - General Family Medicine 09/19/24 Railroad Signal Operator Relationship Specialty Start Date End Date Haylie Mendez MD [address] [place], [place] [id number] PCP - General Family Medicine 09/19/24 Railroad Signal Operator Relationship Specialty Start Date End Date Haylie Mendez MD PCP - General 05/13/23 Yao Brooks MD [address] [place] [address] PCP [facility] 09/25/23 Railroad Signal Operator Relationship Specialty Start Date End Date Haylie Mendez MD PCP - General 05/13/23 Yao Brooks MD [address] [place] [address] PCP [facility] 09/25/23 Team Status: Inactive Member Role Status Dates Haylie Mendez MD Primary Care Provide r, Attending Provider Active Start: December 08, 2024 End: December 08, 2024 Goals (unrecognized section and content) Goals [...] BE BASED ON THE PRIMARY CLINICAL RECORDS. [email or web address] [facility]. provides no warranty or guarantee of the accuracy or completeness of information in this document.
--- OUTSIDE RECORDS SUMMARY | 2024-12-29 20:05 | XMS_ITS | Encounter Summary ---
Author Organization [facility] Address [address] [facility] [place] [address] Care Team Providers Care Car Racer Name Role Phone Haylie Mcnamara MD Primary Care Provider [phone] Yao Bowden MD Unavailable [phone] Encounter Details Date Type Department Care Team (Late st Contact Info) Description 12/29/2024 Bamboo flowsheet [facility] [address] [facility] [place] [address] Pooja Pena PA [address] [place], [facility] Social History Tobacco Use Types Packs/Day Years [...] 05/27/2024 How often do you attend chur or baptist services? Never 05/27/2024 Do you belong to any clubs o r organizations such as shinto groups, unions, fraternal or athletic groups, or [...] medical care, and heating? Somewhat hard 05/27/2024 [facility] of Occupat ional Health - Occupational Stress [...] any time in the past 12 m [facility], were you homeless or living in a mcc (including now)? No 05/27/2024 Comments No Sex [...] [facility] FM [address] [facility] 100 [place] [address] Yao Bowden MD [address] [facility] 100 [place] [address] (Fax) 01/09/2026 8:30 AM EDT Office Visit [facility] [address] [place] [phone] Antwan Hope DO [address] [place], [place] [id number] documented as of this encounter Visit Diagnoses Not on filedocumented in this encounter Care Teams Car Racer Relationship Specialty Start Date End Date Haylie Mcnamara MD [address] [facility] [place] [address] PCP - General 05/13/23 Yao Bowden MD [address] [place] [address] (Fax) PCP - [place] [employer] 09/25/23 documented as of this encounter
--- OUTSIDE RECORDS SUMMARY | 2024-12-29 20:05 | XMS_ITS | Clinical Summary ---
Author Organization [facility] Address [address] [facility] [place] [address] Care Team Providers Care Newspaper Columnist Name Role Phone Haylie Mcnamara MD Primary Care Provider [phone] Yao Bowden MD Unavailable [phone] Allergies Active Allergy Reactions Criticality Noted Date Comments Melatonin Other 05/30/2024 nightmare Penicillins Rash Low 04/17/2023 Other Reaction(s): Unknown Medications SUMAtriptan (Imitrex) 50 MG tablet Take 50 mg by mouth if needed for migraine. 3 Active ADRENAPLEXIndicat ions:Adrenal cortex hypofunction (CMS/HCC) Take 1 capsule by mouth Daily 4 Active liothyronine (Cytomel) 5 MCG tabletIndications :Euthyroid sick syndrome Take 1.5 tablet in AM and 1 tablet in PM on an empty stomach. 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 Overweight (BMI 25.0-29.9) 04/17/2023 Encounters Date Type Department Care Team Description 12/29/2024 9:00 AM EDT Office Visit [facility] [address] [place] [address] Pooja Pena PA Well woman exam with routine gynecological exam; Encounter for screening mammogram for malignant neoplasm of breast 12/29/2024 Bamboo flowsheet [facility] OB [address] [facility] [address] Pooja Pena PA 12/28/2024 Travel 11/21/2024 8:00 AM EDT Office Visit [facility] [address] [address] Yao Bowden MD Euthyroid sick syndrome (Primary Dx); Chronic fatigue; Overweight (BMI 25.0-29.9) 11/21/2024 Bamboo flowsheet [facility] [address] [place] [address] Yao Bowden MD 11/21/2024 Travel from Last 3 Months Immunizations Immunization Administration Dates Next Due DTaP, Unspecified 02/08/2012 Family History Medical History Relation Name Comments Arthritis Father Diabetes Father Rheum arthritis Father Sleep apnea Father Migraines Sister Thyroid disease Sister Relation Name Status Comments Brother 1 brother Father Alive Mother Alive Sister 1 sister Social History Tobacco Use Types Packs/Day Years Used Date Smoking Tobacco: Former Cigarettes Smokeless Tobacco: Never Tobacco Cessation:Counseling Given: Yes Alcohol Use Standard Drinks/Week Comments Yes 4 [...] How often do you attend chur or shinto services? Never 05/27/2024 Do you belong to any clubs o r organizations such as restoration groups, unions, fraternal or athletic groups, or [...] medical care, and heating? Somewhat hard 05/27/2024 [facility] [place] of Occupat ional Health - Occupational Stress [...] any time in the past 12 m [facility], were you homeless or living in a correction (including now)? No 05/27/2024 Comments No Sex and Gender Information Value Date Recorded Sex Assigned at Female 04/09/2023 7:04 PM EDT Legal Sex Female 7:04 PM EDT Gender Identity Female 04/09/2023 7:04 PM EDT Sexual Orientation Not on file Last Filed Vital Signs Vital Sign Reading Time Taken Comments Blood Pressure 126/100 12/29/2024 9:20 AM EDT Pulse - - Temperature - - Respiratory Rate - - Oxygen Saturation - - Inhaled Oxygen Concentration - - Weight 70.9 kg (156 lb 4 oz) 12/29/2024 9:20 AM EDT Height 160 cm (5' 3 ) 11/21/2024 8:00 AM EDT Body Mass Index 27.68 11/21/2024 8:00 AM EDT Plan of Treatment Upcoming Encounters Date Type Department Care Team (Late st Contact Info) Description 05/15/2025 8:00 AM EDT Office Visit [facility] [address] [address] Yao Bowden MD [address] [address] (Fax) 01/09/2026 8:30 AM EDT Office Visit [facility] [address] [facility] [place] [address] Antwan Hope DO [address] [facility] [place] [address] Health Maintenance Due Date Last Done Comments Pap Smear 2001 Cervical Cancer Screening 2010 HPV/Cotest 2010 Mammogram 2020 Influenza Vaccine (Season Ended) 2025 Procedures Procedure Name Priority Date/Time Associated Diagnosis Comments TSH Routine 11/14/2024 8:32 AM EDT Chronic fatigue Euthyroid sick syndrome T4, FREE Routine 11/14/2024 8:32 AM EDT Chronic fatigue Euthyroid sick syndrome T3, FREE Routine 11/14/2024 8:32 AM EDT Chronic fatigue Euthyroid sick syndrome T3, REVERSE Routine 11/14/2024 8:32 AM EDT Chronic fatigue Euthyroid sick syndrome T3, TOTAL Routine 11/14/2024 8:32 AM EDT Chronic fatigue Euthyroid sick syndrome from Last 3 Months Results * T3, reverse (11/14/2024 8:32 AM EDT) Blood Venous blood specimen / Unknown Yao Bowden MD LAB BLOOD ORDERABLES Final R esult Performing Organization Address [facility] de Phone Number QUEST * T3, free (11/14/2024 8:32 AM EDT) Blood Venous blood specimen / Unknown Yao Bowden MD LAB BLOOD ORDERABLES Final R esult Performing Organization Address [facility] de Phone Number QUEST * T3 (11/14/2024 8:32 AM EDT) Blood Venous blood specimen / Unknown Result [facility] Yao Bowden MD LAB BLOOD ORDERABLES Final R esult Performing Organization Address [facility] de Phone Number [facility]ST * TSH (11/14/2024 8:32 AM EDT) Blood Venous blood specimen / Unknown Yao Bowden MD LAB BLOOD ORDERABLES Final R esult Performing Organization Address [facility] de Phone Number QUEST * T4, free (11/14/2024 8:32 AM EDT) Blood Venous blood specimen / Unknown Yao Bowden MD LAB BLOOD ORDERABLES Final R esult [facility] from Last 3 Months Insurance BCBS Care Teams Newspaper Columnist Relationship Specialty [place] [address] [place] [phone] PCP - General 05/13/23 Yao Bowden MD [address] [address] PCP - [place] [employer] 09/25/23
--- OUTSIDE RECORDS SUMMARY | 2024-12-29 20:05 | XMS_ITS | Encounter Summary ---
Author Organization [facility] Address [address] [facility] [place] [address] Care Team Providers Care Tool And Die Technician Name Role Phone Haylie Mcnamara MD Primary Care Provider [phone] Yao Bowden MD Unavailable [phone] Encounter Details Date Type Department Care Team (Late st Contact Info) Description 08/24/2024 Abstract [facility] OB [address] [place] [address] Antwan Hope, DO [address] [facility] [address] [place], [facility]11 Social History Tobacco Use Types Packs/Day [...] How often do you attend chur or hindu services? Never 05/27/2024 Do you belong to any clubs o r organizations such as denominational groups, unions, fraternal or athletic groups, or [...] medical care, and heating? Somewhat hard 05/27/2024 [facility] of Occupat ional Health - Occupational [...] any time in the past 12 m [facility], were you homeless or living in a chcf (including now)? No 05/27/2024 Comments No Sex [...] Visit [facility] 100 [address] [facility] 100 [place] [address] Yao Bowden MD [address] [place] [facility] 100 [place] [address] (Fax) 01/09/2026 8:30 AM EDT Office Visit [facility] OB [address] [place] [phone] Antwan Hope DO [address] [place] [address] documented as of this encounter Visit Diagnoses Not on filedocumented in this encounter Care Teams Tool And Die Technician Relationship Specialty Start Date End Date Haylie Mcnamara MD [address] [facility] [place] [address] PCP - General 05/13/23 Yao Bowden MD [address] [place] [facility] 100 [place] [address] (Fax) PCP - [place] [employer] 09/25/23 documented as of this encounter
--- OUTSIDE RECORDS SUMMARY | 2024-12-29 20:05 | XMS_ITS | Encounter Summary ---
Author Organization [facility] Address [address] [facility] [place] [address] Care Team Providers Care Design Teacher Name Role Phone Haylie Mcnamara MD Primary Care Provider [phone] Yoa Bowden MD Unavailable [phone] Encounter Details Date Type Department Care Team (Latest Contact Info) Description 12/28/2024 Travel Social History Tobacco Use Types Packs/Day Years [...] often do you attend chur ch or presybeterian services? Never 05/27/2024 Do you belong to any clubs o r organizations such as restorationism groups, unions, fraternal or athletic groups, or [...] medical care, and heating? Somewhat hard 05/27/2024 [facility] of Occupat ional Health - Occupational Stress [...] any time in the past 12 m [facility], were you homeless or living in a fci (including now)? No 05/27/2024 Comments No Sex and Gender Information Value Date Recorded Sex Assigned at Female 04/09/2023 7:04 PM EDT Legal Sex Female 7:04 PM EDT Gender Identity Female 04/09/2023 7:04 PM EDT Sexual Orientation Not on file documented as of this encounter Plan of Treatment Upcoming Encounters Date Type Department Care Team ([facility] st Contact Info) Description 05/15/2025 8:00 AM EDT Office Visit [facility] 100 [address] [place] [address] [place] [address] Yao Bowden MD [address] [place] [facility] 100 [place] [address] (Fax) 01/09/2026 8:30 AM EDT Office Visit [facility] OB [address] [facility] [place] [phone] Antwan Hope DO [address] [facility] [address] [place], [place] [phone] documented as of this encounter Visit Diagnoses Not on filedocumented in this encounter Care Teams Design Teacher Relationship Specialty Start Date End Date Haylie Mcnamara MD [address] [facility] [address] PCP - General 05/13/23 Yao Bowdne MD [address] [place] [facility] 100 [place] [address] (Fax) PCP - [place] [employer] 09/25/23 documented as of this encounter
[2025-01-03 14:18] LABS: Age Gdln ACOG Testing Note (.); HPV Aptima Negative (Negative); IGP, Aptima HPV, rfx 16/18,45 Note (.)
== END 2024-12-29 20:02 | disposition home or self-care (01) ==
LOC: LAB 20:01
PROVIDERS: PCP Family Medicine; Visit Provider Physician Assistant
DX: Z01.419 Encounter for gynecological examination (general) (routine) without abnormal findings (principal)
CPT/HCPCS: 87624; 88175

== ENCOUNTER 2025-01-24 17:52 | Outpatient (OUT) | payer BC, SELFPAY ==
--- NOTE | 2025-01-24 17:53 | MM_ITS ---
Patient Name: ADALI JUARES MR#: [id number] : 1980 Exam Date: 01/24/2025 Ordering Doctor: NATHAN DURAN . RADIOLOGY REPORT PROCEDURE: MM TOMOSYNTHESIS SCREENING BI COMPARISON: None. INDICATIONS: Screening for malignant neoplasm Calculator Name NCI Breast Cancer Risk Assessment Tool 5 Year Breast Cancer Risk Not Reported. Lifetime Breast Cancer Risk Not Reported. Personal Breast Cancer No Personal Ovarian Cancer No Treatments None Family Cancers None LOCATION: [facility] BREAST COMPOSITION: The breasts are heterogeneously dense, which may obscure small masses. FINDINGS: DIAGNOSTIC CATEGORY 1--NEGATIVE. RIGHT BREAST: No significant suspicious finding. LEFT BREAST: No significant suspicious finding. RECOMMENDATIONS: ROUTINE MAMMOGRAM AND CLINICAL EVALUATION IN 12 MONTHS. PLEASE NOTE: A NORMAL MAMMOGRAM DOES NOT EXCLUDE THE POSSIBILITY OF BREAST CANCER. A CLINICALLY SUSPICIOUS PALPABLE LUMP SHOULD BE BIOPSIED. Dictated by: Jose Sanches MD on 01/25/2025 at 15:08 Approved by: Jose Sanches MD on 01/25/2025 at 15:16
== END 2025-01-24 17:53 | disposition home or self-care (01) ==
LOC: MAMMO 17:52
PROVIDERS: PCP Family Medicine; Visit Provider Physician Assistant
DX: Z12.31 Encounter for screening mammogram for malignant neoplasm of breast (principal)
CPT/HCPCS: 77063; 77067